=== PATIENT | female | born 1950 | race Caucasian/White ===

== ENCOUNTER → 2024-10-25 | Outpatient (CLI) | payer MEDICARE, MEDICAID, SELFPAY ==
--- NOTE | 2024-10-25 09:17 | XR_ITS ---
Examination: Foot bilateral, 6 views Technique: AP, oblique, lateral views each foot total 6 views Date and time of exam: October 25, 2024 1012 hours INDICATIONS: Bilateral foot pain and numbness several years FINDINGS: Severe osteopenia Bilateral significant osteoarthritis tibiotalar and intertarsal joints Bilateral 5 mm plantar bony calcaneal spurs No fractures No cortical bone destruction IMPRESSION: Significant osteoarthritis as above
--- NOTE | 2024-10-25 09:18 | XR_ITS ---
Examination: Bilateral hips, AP pelvis, 5 views Technique: AP, lateral views both hips, AP pelvis, 5 views Exam date and time: October 25, 2024 1012 hours INDICATIONS: Bilateral hip pain years FINDINGS: Moderate left hip osteoarthritis Sclerosis and radiolucencies left femoral head consistent with advanced avascular necrosis Right hip bipolar hemiarthroplasty with satisfactory alignment Bones the pelvis intact IMPRESSION: Consider MRI hip without contrast follow-up to confirm advanced left hip avascular necrosis
== END | disposition home or self-care (01) ==
LOC: CDIM 09:03
PROVIDERS: PCP Family Medicine; Referring Provider Nurse Practitioner Family; Visit Provider Nurse Practitioner Family
DX: M87.9 Osteonecrosis, unspecified (principal); M19.072 Primary osteoarthritis, left ankle and foot; M19.071 Primary osteoarthritis, right ankle and foot
CPT/HCPCS: 73523; 73630

== ENCOUNTER 2025-01-23 11:54 | Inpatient (IN) | payer MEDICARE, MEDICAID, SELFPAY ==
[2025-01-23] VITALS (9 sets, daily range): BP systolic 156–213; BP diastolic 72–92; PULSE 72–102; RESP 14–20; TEMP 36.6–36.9; O2SAT 90–99; BMI 32.0; BMI 29.6
--- NOTE | 2025-01-23 11:57 | EKG_ITS ---
[facility] Test Date: 2025-01-23 Pat Name: SILVER NOWAK Department: Room: - Gender: Female X Ray Nurse: : 1950 Requested By: ED Temporary Provider Order Number: [id number] Reading MD: ED Temporary Provider Measurements Intervals Rodeo Rate: 71 P: 62 NM: 158 QRS: 10 QRSD: 120 T: 82 QT: 371 QTc: 406 Interpretive Statements SINUS RHYTHM WITH MARKED SINUS ARRHYTHMIA INFERIOR MYOCARDIAL INFARCTION , OF INDETERMINATE AGE [40+ ms Q WAVE AND/OR ST/T ABNORMALITY IN II/aVF] ANTEROLATERAL MYOCARDIAL INFARCTION , OF INDETERMINATE AGE [40+ ms Q WAVE IN I/aVL/V3-V6] Compared to ECG 12/16/2018 20:49:37 Sinus bradycardia no longer present Myocardial infarct finding still present /store/S0/[id number].pdf
--- NOTE | 2025-01-23 12:06 | XR_ITS ---
Examination: AP lateral chest 2 views TECHNIQUE: Sitting AP lateral chest 2 views Date and time: January 23, 2025 1230 hours INDICATIONS: Chest pain beginning one week ago. FINDINGS: Normal heart size. No pneumonia or pulmonary edema Moderate thoracic spondylosis IMPRESSION: No active disease
--- NOTE | 2025-01-23 12:06 | EDRME_ITS ---
Rapid Medical Screening Exam [facility] Arrival date/time: 01/23/25 11:54 74-year-old female with a history of hyperlipidemia, hypertension, COPD presents to the emergency room with a chief complaint of chest pain that has been going on for the last week but has progressively gotten worse the last 2 days. Patient states it is currently a 5 out of 10 sternal chest pain that radiates to her back. I have greeted and performed a focused initial assessment of this patient. A comprehensive ED assessment and evaluation of the patient, analysis of all test results, and completion of the medical decision making process will be conducted by additional ED providers. Chief Complaint: Chest Pain Vital signs: Vital Signs Temperature 98.5 F 01/23/25 12:04 Pulse Rate 75 01/23/25 12:04 Respiratory Rate 19 01/23/25 12:04 Blood Pressure 184/72 H 01/23/25 12:04 Pulse Oximetry (%) 98 01/23/25 12:04 Oxygen Delivery Method Room Air 01/23/25 12:04 Vital signs reviewed by provider: Yes
[2025-01-23] MEDS: HYDROcodone/APAP 5/325 TABLET 1 TAB PO (12:31)
[2025-01-23 12:44] LABS: Basophils # (Auto) 0.1 Thou/mm3 (0.0-0.2); Basophils % (Auto) 1 % (0-2.5); Eosinophils # (Auto) 0.4 Thou/mm3 (0.0-0.5); Eosinophils % (Auto) 3 % (0-10); Hematocrit 38.4 % (36.0-46.0); Hemoglobin 13.3 g/dL (12.0-16.0); Immature Granulocytes Auto 0.06 Thou/mm3 (0.00-0.00); Lymphocytes # (Auto) 2.7 Thou/mm3 (1.0-4.8); Lymphocytes % (Auto) 17 % (10-50); Mean Corpuscular HGB Conc 34.6 g/dl (31.0-37.0); Mean Corpuscular Hemoglobin 31.4 pg (25.0-35.0); Mean Corpuscular Volume 91 fL (80-100); Monocytes # (Auto) 0.9 Thou/mm3 (0.0-0.8); Monocytes % (Auto) 5 % (0-12); Neutrophils # (Auto) 12.0 Thou/mm3 (1.8-7.7); Neutrophils % (Auto) 74 % (37-80); Nucleated Red Blood Cell # 0.00 Thou/mm3 (0.00-0.00); Nucleated Red Blood Cell % 0 /100 WBC (0); Platelet Count 318 Thou/mm3 (140-440); RDW Standard Deviation 47.0 fL (36.4-46.3); Red Blood Count 4.24 Miln/mm3 (4.00-5.20); White Blood Count 16.2 Thou/mm3 (3.6-11.0)
[2025-01-23 12:48] LABS: INR 1.0 (0.9-1.3); Partial Thromboplastin Time 28.3 Seconds (22.0-36.0); Prothrombin Time 10.9 Seconds (9.0-12.2)
[2025-01-23 12:52] LABS: B-Type Natriuretic Peptide 151 pg/mL (0-100)
[2025-01-23 13:07] LABS: Alanine Aminotransferase < 7 U/L (10-49); Albumin, Serum 4.5 gm/dL (3.4-4.8); Albumin/Globulin Ratio 1.7 (1.2-2.2); Alkaline Phosphatase 101 U/L (46-116); Anion Gap 10 (7-16); Aspartate Amino Transferase 16 U/L (0-34); BUN/Creatinine Ratio 12 Ratio (12-20); Bilirubin,Total 0.7 mg/dL (0.3-1.2); Blood Urea Nitrogen 12 mg/dL (9-23); Calcium 9.6 mg/dL (8.3-10.6); Calcium (Corrected) 9.6 mg/dL (8.5-10.1); Carbon Dioxide 23.3 mMol/L (20.0-31.0); Chloride 105 mMol/L (98-107); Creatinine (Component) 1.0 mg/dL (0.6-1.3); Globulin 2.7 gm/dL (2.3-3.5); Glucose 174 mg/dL (74-106); Magnesium 1.7 mg/dL (1.6-2.6); Osmolality,Calculated 279 (275-295); Potassium 3.8 mMol/L (3.4-5.1); Sodium 138 mMol/L (136-145); Total Protein 7.2 gm/dL (5.7-8.2); eGFR 59 See Note
--- NOTE | 2025-01-23 13:07 | PD.EDCHEST ---
ED Chest Pain RME/HPI General Chief Complaint: Chest Pain Stated Complaint: CHEST PAIN X 1 WK Time Seen by Provider: 01/23/25 12:20 Arrival date/time: 01/23/25 11:54 Limitations: no limitations RME / HPI RME / HPI narrative: 01/23/25 11:54 74-year-old female with a history of hyperlipidemia, hypertension, COPD presents to the emergency room with a chief complaint of chest pain that has been going on for the last week but has progressively gotten worse the last 2 days. Patient states it is currently a 5 out of 10 sternal chest pain that radiates to her back. I have greeted and performed a focused initial assessment of this patient. A comprehensive ED assessment and evaluation of the patient, analysis of all test results, and completion of the medical decision making process will be conducted by additional ED providers. DR. MEJIA MAIN ED EVALUATION 74 year old female with history of CAD, DE s/p PCI, hypertension, hyperlipidemia, GERD, presents to the ED for evaluation of substernal chest pain. Described as burning tightness sensation that radiates to her back, rating as moderate. Accompanied by nausea, vomiting, sweats, and burping. No known modifying factors reported. Sap Hana Developer: Dr. Ness Related Data Home Medications ?Medication ?Instructions ?Recorded ?Confirmed ezetimibe 10 mg tablet (Zetia) 10 mg PO QDAY #0 tabs 11/20/13 12/16/18 aspirin 81 mg chewable tablet 81 mg PO QDAY ##0 11/14/15 12/16/18 clopidogrel 75 mg tablet (Plavix) 75 mg PO QDAY #0 tabs 02/02/17 12/16/18 celecoxib 200 mg capsule 200 mg PO QDAY 11/23/18 12/16/18 hydrocodone 7.5 mg-acetaminophen 1 tab PO Q6H PRN Pain 11/23/18 12/16/18 325 mg tablet (Dryden) Previous Rx's ?Medication ?Instructions ?Recorded nitroglycerin 0.4 mg sublingual 0.4 mg SL Q5MIN PRN CHEST PAIN #5 06/27/17 tablet (Nitrostat) tabs atorvastatin 20 mg tablet 40 mg (2 x 20 mg) PO HS #30 tabs 11/26/18 gabapentin 100 mg capsule 200 mg (2 x 100 mg) PO TID #90 caps 11/26/18 lisinopril 20 mg tablet 40 mg (2 x 20 mg) PO QDAY #30 tabs 11/26/18 metoprolol tartrate 25 mg tablet 25 mg PO BID #60 tabs 11/26/18 pantoprazole 40 mg tablet,delayed 40 mg PO QDAY #30 tabs 11/26/18 release Allergies Allergy/AdvReac Type Severity Reaction Status Date / Time No Known Allergies Allergy Verified 01/23/25 11:56 Review of Systems Review of Systems Systems Reviewed: All systems reviewed, normal except as documented Past Medical History Past Medical History NEUROLOGIC: Positive Peripheral Neuropathy CARDIAC: Positive Cardiac Disorders, Myocardial Infarction (x3), Atrial Fibrillation and Hypertension RESPIRATORY: Positive Chronic Obstructive Pulmonary Disease (COPD) ENT: Positive Deafness Surgical History SURGICAL: Positive Coronary Stent (x4), Ear Surgery (left), Eye Surgery (roderick cataract with lenses), Tonsillectomy, Joint Replacement (roderick. knee and right hip) and Section Social History SMOKING STATUS: Former smoker SUBSTANCE USE: marijuana ( occasionally) ED Exam General Limitations: Present no limitations General appearance: Present alert and in no apparent distress Head Head exam: Present atraumatic, normocephalic and normal inspection Eye Eye exam: Present normal appearance, PERRL and EOMI ENT ENT exam: Present normal exam, normal oropharynx and mucous membranes moist Neck Neck exam: Present normal inspection, full ROM and trachea midline Chest Chest inspection: Present normal inspection and symmetric chest wall rise Respiratory Respiratory exam: Present normal lung sounds bilaterally Cardiovascular Cardiovascular exam: Present regular rate, normal rhythm and normal heart sounds Abdominal Exam Abdominal exam: Present soft and normal bowel sounds Extremities Exam Extremities exam: Present normal inspection and full ROM Back Exam Back exam: Present normal inspection and full ROM Neurological Exam Neurological exam: Present alert, oriented X3 and CN II-XII intact Psychiatric Psychiatric exam: Present normal affect and normal mood Skin Skin exam: Present warm, dry, intact and normal color Course Quality Measures none Orders Category Date Time Status CT Screening NOW Care 01/23/25 15:21 Active EKG (ED ONLY) *Do not use* NOW Care 01/23/25 11:57 Completed Miscellaneous Nursing Order NOW Care 01/23/25 15:[address] angio chest Stat Exams 01/23/25 15:20 Ordered EKG (ED Only) Stat Exams 01/23/25 11:57 Draft XR chest 2V Stat Exams 01/23/25 12:06 Completed B-Type Natriuretic Peptide Stat Lab 01/23/25 12:19 Completed CBC Stat Lab 01/23/25 12:19 Completed Comprehensive Metabolic Panel Stat Lab 01/23/25 12:19 Completed Magnesium Stat Lab 01/23/25 12:19 Completed Partial Thromboplastin Time Stat Lab 01/23/25 12:19 Completed Prothrombin Time with INR Stat Lab 01/23/25 12:19 Completed Troponin I Stat Lab 01/23/25 12:19 Completed Troponin I Stat Lab 01/23/25 14:45 Completed Urinalysis Stat Lab 01/23/25 16:00 Completed Famotidine Inj [Pepcid Inj] Med 01/23/25 13:09 Discontinued 20 mg IVP X1 ONE HYDROcodone*/APAP 5/325 [Dryden 5/325] Med 01/23/25 12:23 Discontinued 1 tab PO X1 ONE Morphine Inj Med 01/23/25 13:10 Discontinued 2 mg IVP Q30M PRN Morphine Inj Med 01/23/25 15:14 Discontinued 4 mg IVP X1 ONE Nitroglycerin Oint 2% [Nitro-paste Oint 2%] Med 01/23/25 13:15 Discontinued 1 inch TOP X1 ONE Nitroglycerin/D5w 50 MG IVPB [Nitroglycerin in D5w Ivpb Med 01/23/25 15:59 Active ] 50 mg in 250 ml IV 5 mcg/min Ondansetron Inj [Zofran Inj] Med 01/23/25 13:10 Discontinued 4 mg IVP X1 ONE mg Hyd/Al Hyd/Vanna Susp [Maalox Susp] Med 01/23/25 13:09 Discontinued 30 ml PO X1 ONE Vital Signs Vital signs: Vital Signs Temperature 98.5 F 01/23/25 12:04 Pulse Rate 75 01/23/25 12:04 Respiratory Rate 19 01/23/25 12:04 Blood Pressure 184/72 H 01/23/25 12:04 Pulse Oximetry (%) 98 01/23/25 12:04 Oxygen Delivery Method Room Air 01/23/25 12:04 Pulse ox is 98% on room air which is adequate. Chest Pain MDM Narrative MDM Narrative:: IMayra am scribing for and in the presence of Dr. Mejia. 1800: Patient signed out to Dr. Calvillo pending CT angio chest and final disposition. Patient data External records reviewed:: [facility] previous records (I reviewed admission from 12/16/2024 through 12/17/2024) Clinical information provided by:: patient Social determinants that could affect healthcare access:: none Patient has the following chronic illnesses:: CAD, DE s/p PCI, hypertension, hyperlipidemia, GERD How is presenting disease/condition affected by chronic disease/condition?: exacerbated by Evaluation data The following diagnostics were reviewed and interpreted by me:: lab results, radiology exam(s) and EKG tracing(s) (EKG 12:00 PM. NSR, HR 71, sinus arrhythmia, normal axis, Q-waves in lead II III and aVF, ST depression in I and aVF, no STEMI ) Lab and/or radiology exams considered but not ordered:: None Interpretation Summary: Ordering Physician: Shadi Vega Date of Service: 01/23/25 Procedure(s): XR chest 2V Accession Number(s): [id number] cc: Shadi Vega; Emanuel Ortiz MD~ Examination: AP lateral chest 2 views TECHNIQUE: Sitting AP lateral chest 2 views Date and time: January 23, 2025 1230 hours INDICATIONS: Chest pain beginning one week ago. FINDINGS: Normal heart size. No pneumonia or pulmonary edema Moderate thoracic spondylosis IMPRESSION: No active disease Dictated By: Emanuel Ortiz MD Signed By: <Electronically signed by Emanuel Ortiz MD in OV> 01/23/25 1242 Medications / Prescriptions Medications or Prescriptions considered but not ordered:: None Medication administrations:: Medication Administration History Nitroglycerin/Dextrose (Nitroglycerin In D5w Ivpb) 50 mg in 250 mls @ 1.5 mls/hr IV .Q24H PRN; Protocol PRN Reason: PER PROTOCOL Stop: 02/22/25 15:58 Last Titration: 01/23/25 17:34 Dose: 10 mcg/min, 3 mls/hr Documented By: Admin: 01/23/25 17:12 Dose: 5 mcg/min, 1.5 mls/hr Documented By: VRS Discontinued Medications Hydrocodone Bitart/Acetaminophen (Hydrocodone/Apap 5/325 Tablet) 1 tab PO X1 ONE Stop: 01/23/25 12:24 Last Admin: 01/23/25 12:31 Dose: 1 tab Documented By: OA Al Hydrox/Mg Hydrox/Simethicone (Mg Hyd/Al Hyd/Vanna (Maalox Reg) Susp 30 Ml Udc) 30 ml PO X1 ONE Stop: 01/23/25 13:10 Last Admin: 01/23/25 15:21 Dose: 30 ml Documented By: DO Famotidine (Famotidine Inj 10 Mg/Ml Vial 2 Ml) 20 mg IVP X1 ONE Stop: 01/23/25 13:10 Last Admin: 01/23/25 13:20 Dose: 20 mg Documented By: NAKUL Morphine Sulfate (Morphine Sulf Inj 10 Mg/Ml Vial) 2 mg IVP Q30M PRN PRN Reason: CHEST PAIN Stop: 01/24/25 13:09 Last Admin: 01/23/25 17:10 Dose: 2 mg Documented By: Admin: 01/23/25 14:03 Dose: 2 mg Documented By: Admin: 01/23/25 13:20 Dose: 2 mg Documented By: NAKUL Morphine Sulfate (Morphine Sulf Inj 10 Mg/Ml Vial) 4 mg IVP X1 ONE Stop: 01/23/25 15:15 Last Admin: 01/23/25 15:21 Dose: 4 mg Documented By: DO Nitroglycerin (Nitroglycerin Oint 2% 1 Inch Packet) 1 inch TOP X1 ONE Stop: 01/23/25 13:16 Last Admin: 01/23/25 13:27 Dose: 1 inch Documented By: NAKUL Ondansetron HCl (Ondansetron Inj 2 Mg/Ml Inj 2 Ml) 4 mg IVP X1 ONE; Protocol Stop: 01/23/25 13:11 Last Admin: 01/23/25 13:21 Dose: 4 mg Documented By: NAKUL see above Consultations Consultation(s) initiated? (list below): No Diagnosis Chest Pain Differential Diagnosis: stable angina, unstable angina pectoris, atypical chest pain, st elevation myocardial infarction, costochondritis, chest pain and biliary colic Most likely diagnosis given after review of the tests above:: Chest pain Admission Indicated Admission indicated?: not indicated Explain why admission is indicated or not indicated:: Patient signed out pending final disposition. Admission Request Was there a request for admission?: No Disposition Plan Disposition Plan: other (specify) (Signed out to Dr. Calvillo) Discharge Plan Prescriptions/Referrals Prescriptions/Med Rec: No Action ezetimibe [Zetia] 10 MG tablet 10 mg PO QDAY Qty: 0 aspirin 81 MG tablet,chewable 81 mg PO QDAY Qty: 0 clopidogrel [Plavix] 75 MG tablet 75 mg PO QDAY Qty: 0 nitroglycerin [Nitrostat] 0.4 MG tablet, sublingual 0.4 mg SL Q5MIN PRN (Reason: CHEST PAIN) Qty: 5 0RF celecoxib 200 mg Capsule 200 mg PO QDAY hydrocodone-acetaminophen [Dryden] 7.5-325 mg Tablet 1 tab PO Q6H PRN (Reason: Pain) atorvastatin 20 mg Tablet 40 mg PO HS Qty: 30 0RF lisinopril 20 mg Tablet 40 mg PO QDAY Qty: 30 0RF pantoprazole 40 mg Tablet,Delayed Release (Dr/Ec) 40 mg PO QDAY Qty: 30 0RF gabapentin 100 mg Capsule 200 mg PO TID Qty: 90 0RF metoprolol tartrate 25 mg Tablet 25 mg PO BID Qty: 60 0RF Referrals: Griffin Up FNP [Primary Care Provider] - In 1 week Patient/Caregiver Discharge Instructions Print Language: Somali
--- NOTE | 2025-01-23 13:07 | PC.NURSE ---
PT IN TODAY FOR CHEST PAIN FOR THE LAST WEEK. PT STATES THAT SHE HAS A BURNING SENSATION, SOB, N/V, AND DIAPHORESIS. PT STATES THAT PAIN RADIATES TO LEFT HAND. DR. MEJIA AT BEDSIDE.
[2025-01-23 13:13] LABS: Troponin I 0.059 ng/mL (0.0-0.045)
[2025-01-23] MEDS: MORPHINE SULF INJ 10 MG/ML VIAL 2 MG IVP ×3 (13:20→17:10)
[2025-01-23] MEDS: FAMOTIDINE INJ 10 MG/ML VIAL 2 ML 20 MG IVP (13:20)
[2025-01-23] MEDS: ONDANSETRON INJ 2 MG/ML INJ 2 ML 4 MG IVP ×2 (13:21→22:13)
[2025-01-23] MEDS: NITROGLYCERIN OINT 2% 1 INCH PACKET TOP (13:27)
--- NOTE | 2025-01-23 15:20 | XR_ITS ---
Examination: CTA chest with intravenous contrast 2-D reconstructions 3-D reconstructions, vascular Date and time of exam: January 23, 2025, 1855 hours INDICATIONS: Severe chest pain one week CTDI: vol (mGy) 10.7 DLP: (mGycm) 273 Technique: Multiple axial sections of the thorax have been obtained. 3 mm slice thickness, from below the hemidiaphragms to above the apices of the lungs. Mediastinal and lung density settings have been obtained. 2-D sagittal and coronal reconstructions. 3-D angiographic renderings, 3-D volume renderings, 3D post processing, vascular maximum intensity projections obtained. Contrast administered is 100 cc Isovue-370. Low dose protocols were performed. One or more of the following dose reduction techniques were used; automated exposure control, adjustment of the mA and/or KV according to patient size, use of iterative reconstruction technique. Findings: No thoracic aortic aneurysmal dilatation or dissection Main pulmonary artery segment 34 mm No pulmonary artery emboli Heavy calcification left anterior descending coronary artery Mild enlargement left atrium and left ventricle No pneumonia or pulmonary edema 8 mm liver cyst Absent gallbladder No common bile duct stones Trace fluid subcapsular to the spleen, 6 mm, axial image 147 Atrophic pancreas No hydronephrosis Prominent thoracic spondylosis IMPRESSION: No thoracic aortic aneurysm dilatation or dissection Pulmonary artery hypertension pattern. Negative for pulmonary artery emboli Heavy calcification left anterior descending coronary artery
[2025-01-23] MEDS: MORPHINE SULF INJ 10 MG/ML VIAL 4 MG IVP (15:21)
[2025-01-23] MEDS: MG HYD/AL HYD/SIME (Maalox Reg) SUSP 30 ML UDC PO (15:21)
[2025-01-23 15:43] LABS: Troponin I 0.180 ng/mL (0.0-0.045)
[2025-01-23 16:38] LABS: Collection Type, Urine Clean Catch
[2025-01-23] MEDS: Nitroglycerin/D5w 50 MG IVPB 50 MG/250 ML BTL IV (17:12)
[2025-01-23 17:46] LABS: Bacteria,Urine Rare; Bilirubin,Urine Negative (Negative); Blood,Urine 2+ (Negative); Budding Yeast,Urine Present; Clarity,Urine Turbid (Clear/Hazy); Color,Urine Lt-Yellow (Lt Yel-Yel); Glucose, Urine Negative (Negative); Ketones,Urine Negative (Negative); Leukocyte Esterase,Urine Negative (Negative); Nitrite,Urine Negative (Negative); PH,Urine 6.0 (5.0-7.0); Protein,Urine 1+ (Neg - Trace); RBC,Urine 5 /hpf (0-3); Specific Gravity,Urine 1.016 (1.001-1.035); Squamous Epithelial Cell,Urine 16 /hpf (0-5); Urobilinogen,Urine Negative mg/dL (0.0-1.0); WBC,Urine 1 /hpf (0-5)
--- NOTE | 2025-01-23 18:52 | EDNOTE_ITS ---
Emergency Room Addendum Addendum Narrative: 1800: Care assumed from Dr. Stevenson, the previous shift emergency physician. Past medical, surgical, social and family history reviewed. Vitals and home medications reviewed. Results and treatment plan discussed. I will assume the care of the patient at this time and will follow the patient, pending CT angio chest. Please refer to the emergency department record for history and examination from initial visit. Repeat troponin went up to 0.180 (was 0.059). CTA read unremarkable for any acute findings. Will consult cardiology. 1945: Discussed case with Dr. Lama from cardiology regarding consultation. Discussed patients ED course, exam findings, labs, and radiology results. Agrees to consult. 1948: Discussed case with the resident physician, attending Dr. Doyle from Hospitalist service regarding admission. Discussed patients ED course, exam findings, labs, and radiology results. The Hospitalist agrees to accept the patient for admission. RADIOLOGY RESULTS: [facility] Report Signed Patient: SILVER NOWAK. Record#: [id number] Birthdate: 1950 Age/Sex: 74 / F Location: [facility] Attending Dr: Ordering Physician: Alex Stevenson MD Date of Service: 01/23/25 Procedure(s): CT angio chest Accession Number(s): [id number] cc: Griffin Up; Emanuel Ortiz MD; Alex Stevenson MD~ Examination: CTA chest with intravenous contrast 2-D reconstructions 3-D reconstructions, vascular Date and time of exam: January 23, 2025, 1855 hours INDICATIONS: Severe chest pain one week CTDI: vol (mGy) 10.7 DLP: (mGycm) 273 Technique: Multiple axial sections of the thorax have been obtained. 3 mm slice thickness, from below the hemidiaphragms to above the apices of the lungs. Mediastinal and lung density settings have been obtained. 2-D sagittal and coronal reconstructions. 3-D angiographic renderings, 3-D volume renderings, 3D post processing, vascular maximum intensity projections obtained. Contrast administered is 100 cc Isovue-370. Low dose protocols were performed. One or more of the following dose reduction techniques were used; automated exposure control, adjustment of the mA and/or KV according to patient size, use of iterative reconstruction technique. Findings: No thoracic aortic aneurysmal dilatation or dissection Main pulmonary artery segment 34 mm No pulmonary artery emboli Heavy calcification left anterior descending coronary artery Mild enlargement left atrium and left ventricle No pneumonia or pulmonary edema 8 mm liver cyst Absent gallbladder No common bile duct stones Trace fluid subcapsular to the spleen, 6 mm, axial image 147 Atrophic pancreas No hydronephrosis Prominent thoracic spondylosis IMPRESSION: No thoracic aortic aneurysm dilatation or dissection Pulmonary artery hypertension pattern. Negative for pulmonary artery emboli Heavy calcification left anterior descending coronary artery Dictated By: Emanuel Ortiz MD Signed By: <Electronically signed by Emanuel Ortiz MD in OV> 01/23/25 0861
--- NOTE | 2025-01-23 20:34 | PD.RESHP ---
Documentation for date of: 01/23/25 HPI History of Present Illness Chief complaint: Chest pain History of present illness: 74-year-old female with past medical history of coronary artery disease status post stent placement x 4 (last one in 2018 and first 1 in 1993), hypertension, hyperlipidemia, neuropathy, marijuana use disorder presenting to the ED on 01/23 with acute chest pain. Patient states that the pain is substernal region and feels like a stabbing sensation that radiates to her back with no radiation to her jaw or upper extremities. Pain does not subside with deep inspiration and she feels slightly better when she is sitting upright. Of note, patient follows up with pin drafting machine tender Dr. Ness and her last appointment was about 3 months ago; moreover, she was scheduled for another appointment for reassessment and imaging. Patient denies having any history of heart failure and denies having any orthopnea, paroxysmal nocturnal dyspnea, lower extremity edema or cough. Medical history: As stated above Surgical history: Angioplasty with 4 stents placed ([id number]) Allergies: NKDA Medications: Patient on Plavix for CAD, losartan 100 and amlodipine 5 for hypertension and statin medication, pending med rec Family history: Patient has significant family history of coronary artery disease with CABG and DE in father and secondary family members with hypertension Social history: Patient currently lives with nephew, smokes marijuana daily but denies any alcohol or tobacco use. Patient normally ambulates using a walker secondary to neuropathy ROS: All 12 systems assessed and the patient denies unless otherwise stated in HPI In the ED, patient presented in hypertensive emergency with a blood pressure of 213/92, heart rate of 75 with some bouts of tachycardia is high as 102, respiratory rate within normal limits, afebrile satting 98 but currently 90 on room air. Pertinent lab findings included WBC of 16.2, hemoglobin 13.3, potassium 3.8, creatinine 1.0, BUN 12, EGFR 59, magnesium 1.7, troponin initially 0.059 has uptrend to 0.180 and is currently 2.037. BNP of 151, urinalysis shows no signs of infection. EKG shows sinus rhythm with possible ST changes noted in V1?V3 and reciprocal changes in leads I. Chest x-ray shows no active disease in chest CTA shows heavy calcification of the LAD, mild enlargement of the left atrium and left ventricle, 8 mm liver cyst and PAH pattern noted Patient will be admitted for NSTEMI type I on heparin drip with cardiology consulted for possible left heart cath. Exam Vital Signs Temp Pulse Resp BP Pulse Ox O2 Del Method 98.2 F 102 H 16 160/79 H 96 Room Air 01/23/25 16:50 01/23/25 17:33 01/23/25 17:33 01/23/25 17:33 01/23/25 17:33 01/23/25 17:33 Narrative Exam Physical Exam: GENERAL: Awake, answering questions appropriately, appears stated age HEENT: NC/AT. Moist mucosa. PERRLA/EOMI. CARDIO: Heart RRR, no obvious murmurs, no JVD. PULM: No coughing or visible SOB. Lungs CTA B/L. GI: Abdomen soft, NT/ND, +BS. SKIN/MSK/EXT: Tenderness elicited on left hip. No wounds/discoloration/rashes/edema/amputations. +Pedal pulses present B/L. NEURO: Oriented x3, Moves extremities x4, decreased sensation to pinprick and vibration on right foot but motor strength 5 out of 5 on bilateral lower extremities, no focal neurologic deficits noted Results: Labs 01/23/25 12:19 01/23/25 12:19 Labs: Short CBC 01/23/25 Range/Units 12:19 WBC 16.2 H (3.6-11.0) Thou/mm3 Hgb 13.3 (12.0-16.0) g/dL Hct 38.4 (36.0-46.0) % Plt Count 318 (140-440) Thou/mm3 BMP 01/23/25 12:19 Sodium 138 Potassium 3.8 Chloride 105 Carbon Dioxide 23.3 BUN 12 Creatinine 1.0 Glucose 174 H Calcium 9.6 Cardiac Enzymes 01/23/25 01/23/25 Range/Units 12:19 14:45 Troponin I 0.059 H* 0.180 H* (0.0-0.045) ng/mL Liver Function 01/23/25 Range/Units 12:19 Total Bilirubin 0.7 (0.3-1.2) mg/dL AST 16 (0-34) U/L ALT < 7 L (10-49) U/L Alkaline Phosphatase 101 (46-116) U/L Albumin 4.5 (3.4-4.8) gm/dL Urine 01/23/25 Range/Units 16:00 Urine Color Lt-Yellow (Lt Yel-Yel) Urine Clarity Turbid A (Clear/Hazy) Urine pH 6.0 (5.0-7.0) Ur Specific [place] 1.016 (1.001-1.035) Urine Protein 1+ A (Neg - Trace) Urine Glucose (UA) Negative (Negative) Quality Measures Quality Measures none Advance care planning discussed with:: patient Medications Home Medications and Allergies Home Medications ?Medication ?Instructions ?Recorded ?Confirmed ?Type ezetimibe 10 mg tablet (Zetia) 10 mg PO QDAY #0 tabs 11/20/13 12/16/18 History aspirin 81 mg chewable tablet 81 mg PO QDAY ##0 11/14/15 12/16/18 History clopidogrel 75 mg tablet (Plavix) 75 mg PO QDAY #0 tabs 02/02/17 12/16/18 History celecoxib 200 mg capsule 200 mg PO QDAY 11/23/18 12/16/18 History hydrocodone 7.5 mg-acetaminophen 1 tab PO Q6H PRN Pain 11/23/18 12/16/18 History 325 mg tablet (Hartman) Allergies Allergy/AdvReac Type Severity Reaction Status Date / Time No Known Allergies Allergy Verified 01/23/25 11:56 Visit Medications Acetaminophen (Acetaminophen 325 Mg Tablet) 650 mg PO Q6H PRN PRN Reason: PAIN SCALE 1-3 (mild Stop: 02/22/25 20:01 Nitroglycerin/Dextrose (Nitroglycerin In D5w Ivpb) 50 mg in 250 mls @ 1.5 mls/hr IV .Q24H PRN; Protocol PRN Reason: PER PROTOCOL Stop: 02/22/25 15:58 Last Titration: 01/23/25 20:10 Dose: 25 mcg/min, 7.5 mls/hr Ondansetron HCl (Ondansetron Inj 2 Mg/Ml Inj 2 Ml) 4 mg IVP Q6H PRN; Protocol PRN Reason: NAUSEA OR VOMITING Stop: 02/22/25 20:01 Discontinued Medications Hydrocodone Bitart/Acetaminophen (Hydrocodone/Apap 5/325 Tablet) 1 tab PO X1 ONE Stop: 01/23/25 12:24 Last Admin: 01/23/25 12:31 Dose: 1 tab Al Hydrox/Mg Hydrox/Simethicone (Mg Hyd/Al Hyd/Vanna (Maalox Reg) Susp 30 Ml Udc) 30 ml PO X1 ONE Stop: 01/23/25 13:10 Last Admin: 01/23/25 15:21 Dose: 30 ml Famotidine (Famotidine Inj 10 Mg/Ml Vial 2 Ml) 20 mg IVP X1 ONE Stop: 01/23/25 13:10 Last Admin: 01/23/25 13:20 Dose: 20 mg Morphine Sulfate (Morphine Sulf Inj 10 Mg/Ml Vial) 2 mg IVP Q30M PRN PRN Reason: CHEST PAIN Stop: 01/24/25 13:09 Last Admin: 01/23/25 17:10 Dose: 2 mg Morphine Sulfate (Morphine Sulf Inj 10 Mg/Ml Vial) 4 mg IVP X1 ONE Stop: 01/23/25 15:15 Last Admin: 01/23/25 15:21 Dose: 4 mg Nitroglycerin (Nitroglycerin Oint 2% 1 Inch Packet) 1 inch TOP X1 ONE Stop: 01/23/25 13:16 Last Admin: 01/23/25 13:27 Dose: 1 inch Ondansetron HCl (Ondansetron Inj 2 Mg/Ml Inj 2 Ml) 4 mg IVP X1 ONE; Protocol Stop: 01/23/25 13:11 Last Admin: 01/23/25 13:21 Dose: 4 mg Assessment & Plan Plan 74-year-old female with past medical history of coronary artery disease status post stent placement x 4 (last one in 2019 and first 1 in 1993), hypertension, hyperlipidemia, neuropathy, marijuana use disorder presenting to the with acute chest pain will be admitted for NSTEMI type I on heparin drip with cardiology consulted for possible left heart cath. #NSTEMI type I #Acute coronary syndrome #History of coronary artery disease, status post 4 stents placed ASCVD risk score 37.4% Risk of cardiovascular event (coronary or stroke or non-fatal DE or stroke) in next 10 years. As noted above in HPI, patient is presenting with typical chest pain located in the substernal region started earlier in the day with radiation to the back Patient has significant history of coronary artery disease, follows Dr. Ness last stent placed in 2019 Operative note from 2019 shows 100% occlusion of the long segment of the proximal to mid right coronary artery, previously stented long segment of the mid left anterior descending Patient has not follow-up with Dr. Ness for about 3 months Troponin initially 0.059 has uptrend to 0.180 and is currently 2.037. BNP of 151 EKG shows sinus rhythm with possible ST changes noted in V1?V3 and reciprocal changes in leads I CTA shows heavy calcification of the LAD, mild enlargement of the left atrium and left ventricle, 8 mm liver cyst and PAH pattern noted In the ED, patient was given IV pain medication along with nitroglycerin topical followed by nitroglycerin drip which was later discontinued Cardiology was made aware of the patient and agreed on admitting Plan: Will discontinue nitroglycerin drip Will start heparin drip Started patient on home Plavix dose 40 mg atorvastatin Carvedilol 6.25 p.o. twice daily Will hold off on MARIO ARB as the patient had hypertensive emergency, permissive hypertension Cardiology consulted, appreciate recommendations Will continue to trend troponin Echo ordered Will keep magnesium greater than 2 and potassium greater than 4 Telemetry monitoring #Hypertensive emergency #PAH #Hypertension Patient is on home losartan 100 and amlodipine 5 Hypertensive emergency with a blood pressure of 213/92, heart rate of 75 with some bouts of tachycardia is high as 102 Currently blood pressure is 156/80 Plan: Permissive hypertension with a goal reduction of no more than 25% over the next 24 hours As needed IV labetalol 10 mg every 6 hours if blood pressure is above 185/105 Restart home medications when appropriate #Leukocytosis Differentials include likely reactive process secondary to acutely ill status versus underlying infection Patient denies having any concerning symptoms such as cough/shortness of breath, dysuria Chest x-ray shows no active disease in chest U/a was negative for any signs of infection Plan: Treat primary problem Continue to monitor with morning labs #MS? #Neuropathy Patient states that she has been diagnosed with MS in the past but she is currently not taking any medications On examination, patient has reduced sensation in the right lower extremity, foot Denies having any history of diabetes Plan: Follow-up with outpatient PCP #8mm Liver cyst Incidental finding on CT imaging Plan: Consider further imaging studies Follow-up outpatient #Marijuana use disorder Patient apparently smokes marijuana daily Plan: Consider social service consultation [place] on cessation #Left hip musculoskeletal disorder Apparently in 2019, patient had a fall on her left hip and she has been having pain in the region Patient's PCP Dr. Erazo has done imaging studies which were negative for any fracture Plan: Pain management when appropriate Health Maintenance: Lines: PIV Diet: N.p.o. after midnight Bowel: Not needed at this point GI prophylaxis: Not needed at this point DVT prophylaxis: On heparin drip Dispo: On heparin drip for NSTEMI type I with cardiology consultation for possible left heart cath Code: Full Patient seen and examined with attending Dr. Rodney Houser, DO PGY-2 Internal Medicine - [facility] Attending Provider Attestation/Addendum 74-year-old female with coronary artery disease with previous coronary stents x 4 presents with chest pain. She said that her pain started over a week ago. She was supposed to see Dr. Jefferson her pin drafting machine tender. The patient however cannot stand the pain anymore. She came to the emergency room. Heparin drip was started. The patient has initial troponin of 0.059. Repeat troponin is 0.180. Patient still complains of chest pain. Cardiology consultation was requested. As mentioned she was started on heparin drip. Vital signs are stable. She is not hypoxic. She is not congested. EKG showed lateral wall ischemic changes. Normal sinus rhythm. I discussed with and supervised the resident physician who took care of this patient. I agree with the assessment and plan as above.
[2025-01-23 21:38] LABS: Troponin I 2.037 ng/mL (0.0-0.045)
--- NOTE | 2025-01-23 21:56 | PC.NURSE ---
Report called to floor nurse ZONIA Phillips
[2025-01-23] MEDS: MORPHINE SULF INJ 10 MG/ML VIAL IVP ×2 (22:13→23:14)
[2025-01-23] MEDS: Magnesium Sulfate 4 GM Ivpb 4 GM/50 ML BAG IV (23:23)
[2025-01-23] MEDS: HEPARIN SOD INJ 5000 UNIT/ML VIAL 4000 UNIT IV (23:25)
[2025-01-23] MEDS: Heparin/D5w 25K 250 ML Ivpb 25,000 UNIT/250 ML BAG 9.096 UNIT IV (23:26)
[2025-01-24] VITALS (20 sets, daily range): BP systolic 108–160; BP diastolic 52–138; PULSE 66–96; RESP 11–20; TEMP 36.2–36.8; O2SAT 91–98; BMI 29.5
[2025-01-24] MEDS: METOCLOPRAMIDE INJ 5 MG/ML VIAL 2 ML 10 MG IVP (00:19)
[2025-01-24 02:40] LABS: Troponin I 3.404 ng/mL (0.0-0.045)
[2025-01-24] MEDS: MORPHINE SULF INJ 10 MG/ML VIAL IVP ×3 (04:03→22:41)
[2025-01-24 05:58] LABS: Basophils # (Auto) 0.1 Thou/mm3 (0.0-0.2); Basophils % (Auto) 0 % (0-2.5); Eosinophils # (Auto) 0.0 Thou/mm3 (0.0-0.5); Eosinophils % (Auto) 0 % (0-10); Hematocrit 40.2 % (36.0-46.0); Hemoglobin 14.0 g/dL (12.0-16.0); Immature Granulocytes Auto 0.07 Thou/mm3 (0.00-0.00); Lymphocytes # (Auto) 2.0 Thou/mm3 (1.0-4.8); Lymphocytes % (Auto) 12 % (10-50); Mean Corpuscular HGB Conc 34.8 g/dl (31.0-37.0); Mean Corpuscular Hemoglobin 31.5 pg (25.0-35.0); Mean Corpuscular Volume 91 fL (80-100); Monocytes # (Auto) 1.1 Thou/mm3 (0.0-0.8); Monocytes % (Auto) 7 % (0-12); Neutrophils # (Auto) 12.8 Thou/mm3 (1.8-7.7); Neutrophils % (Auto) 80 % (37-80); Nucleated Red Blood Cell # 0.00 Thou/mm3 (0.00-0.00); Nucleated Red Blood Cell % 0 /100 WBC (0); Platelet Count 352 Thou/mm3 (140-440); RDW Standard Deviation 46.1 fL (36.4-46.3); Red Blood Count 4.44 Miln/mm3 (4.00-5.20); White Blood Count 16.0 Thou/mm3 (3.6-11.0)
[2025-01-24 06:09] LABS: INR 1.0 (0.9-1.3); Partial Thromboplastin Time 45.7 Seconds (22.0-36.0); Prothrombin Time 10.8 Seconds (9.0-12.2)
[2025-01-24 06:29] LABS: Alanine Aminotransferase 11 U/L (10-49); Albumin, Serum 4.5 gm/dL (3.4-4.8); Albumin/Globulin Ratio 1.6 (1.2-2.2); Alkaline Phosphatase 105 U/L (46-116); Anion Gap 9 (7-16); Aspartate Amino Transferase 47 U/L (0-34); BUN/Creatinine Ratio 13 Ratio (12-20); Bilirubin,Total 0.6 mg/dL (0.3-1.2); Blood Urea Nitrogen 9 mg/dL (9-23); Calcium 9.2 mg/dL (8.3-10.6); Calcium (Corrected) 9.2 mg/dL (8.5-10.1); Carbon Dioxide 26.4 mMol/L (20.0-31.0); Cardiac Risk Estimate 3.0 RATIO (3.7-5.6); Chloride 106 mMol/L (98-107); Cholesterol 152 mg/dL (132-200); Creatinine (Component) 0.7 mg/dL (0.6-1.3); Estimated Creatinine Clearance 67.7 mL/min (>60); Globulin 2.8 gm/dL (2.3-3.5); Glucose 131 mg/dL (74-106); HDL Cholesterol 50 mg/dL (40-60); LDL Cholesterol,Calculated 85 mg/dL (0-130); Osmolality,Calculated 281 (275-295); Potassium 3.7 mMol/L (3.4-5.1); Sodium 141 mMol/L (136-145); Thyroid Stimulating Hormone 3.91 uIU/mL (0.55-4.78); Total Protein 7.3 gm/dL (5.7-8.2); Triglycerides 87 mg/dL (30-150); eGFR > 60 See Note
[2025-01-24] MEDS: HEPARIN SOD INJ 5000 UNIT/ML VIAL 2000 UNIT IVP (06:36)
--- NOTE | 2025-01-24 08:00 | PC.SS ---
RN ORTHOPAEDIC conducted bedside contact with the patient conduct initial assessment and to discuss discharge planning.? Patient confirmed demographic information.? Patient resides at home with nephew, Dat Tran.? Patient is retired.? Patient confirms use of walker to assist with ambulation.? Patient does not utilize home oxygen.? Patient describes ability to complete ADL?s independently.? Patient identified son, Roque Barreto ; as medical surrogate decision maker.? Patient?s PCP is [facility].? Patient?s chamfering machine operator is Dr. Ness.? Patient does not participate with dialysis.? Patient confirmed access to basic utilities and provisions.? RN ORTHOPAEDIC discussed with the patient use of marijuana as reported in [facility].? Toxicology report not present in chart.? Patient confirmed use of marijuana to address history of anxiety and to relieve inflammation.? Patient reports use of marijuana since age 20.? Per patient use of marijuana does not interfere with daily functioning.? Patient reports that PCP is aware of marijuana use.? Plan is for the patient to return home at the time of discharge.? Patient informed RN ORTHOPAEDIC that if home health is recommended patient will not participate with resource due to previous negative experience with home health services.? Family will provide transportation on behalf of the patient. ?No further discharge needs identified by the patient.? No further intervention required at this time, social science analyst will be available to address any further concerns.? Next of Kin: Roque Barreto D/C Plan: Home
--- NOTE | 2025-01-24 08:02 | PC.SS ---
Update: Plan is for the patient to obtain angiogram today. Patient is currently NPO.
[2025-01-24] MEDS: CLOPIDOGREL BISULFATE 75 MG TABLET PO (08:17)
[2025-01-24] MEDS: ASPIRIN EC 81 MG TABEC PO (08:18)
[2025-01-24] MEDS: POTASSIUM CHL 10 mEq IVPB 10 MEQ/100 ML BAG 100 MEQ IV (08:18)
[2025-01-24] MEDS: ASPIRIN EC 81 MG TABEC 243 MG PO (08:46)
--- NOTE | 2025-01-24 08:52 | PD.RESPRO ---
Documentation for date of: 01/24/25 [facility] admission. Patient admitted for ACS rule out given chest pain with risk factors of previous history of CAD, patinet follows Dr. Ospina, Dr. Lama consulted. EKG no ST elevation. NSTEMI type I vs NStEMI type II. Patient started on hepairn drip, Aspirin, Plavix, and beta [place]. High intensity statins recommended. Currently NPO. Plan for left heart catherization for today. Subjective Subjective Interval history: Patient was seen and evaluated today at bedside. Patient acknowledged pain that she stated spread along her ribs. Patient endorsed chest pain. Patient denied any radiation of pain to jaw or shoulder. Patient denied shortness of breath at rest, but acknowledged increasing dyspnea on exertion when conducting daily activities of living, such as cleaning around the house. Patient denied paroxysmal nocturnal dyspnea and orthopnea. Patient denied abdominal pain. Trop uptrending from 0.05 on admission to 5.03 at 0800 and 6.739 at 1305. Patient given aspirin 243 mg x1 this morning. Patient to continue on Atorvastatin 40 mg, Coreg 6.25 mg BID, Plavix 75 mg PO QD, and Aspirin 81 mg PO QD. Patient reiterated history of CAD s/p x4. Patient normally follows cardiology, Dr. Ness. Left heart cath completed today, Dr. Lama, appreciate recommendations. Upgraded to ICU today. Exam Vital Signs Temp Pulse Resp BP Pulse Ox O2 Del Method 97.3 F 88 15 145/73 H 93 L Room Air 01/24/25 04:00 01/24/25 08:16 01/24/25 04:00 01/24/25 08:16 01/24/25 04:00 01/24/25 04:00 Narrative Exam General Appearance: Alert & Oriented to person, time, place, and condition; well-nourished female who is lying in bed in mild distress due to substernal discomfort. HEENT: Skull symmetrical and atraumatic. Conjunctivae pink and moist. Pupils equal, round, reactive to light and accommodation (PERRL). External ear without lesion or discharge. Straight, nares patient, mucosa pink, no discharge. No thyroid nodule appreciated. No cervical lymphadenopathy. Cardio: Normal Rate and Rhythm with S1 and S2 heart sounds. Possible aortic stenosis. No bruits on carotid auscultation. No peripheral edema or cyanosis. Lungs: Symmetric with good expansion. Chest and back non-tender. Breath sounds vesicular without crackles, wheezing or rhonchi Abdomen: Non-tender, Non-distended, Normal Reactive Bowel Sounds Neuro: Alert, cooperative, oriented to person, place, and time. Speech clear. CN grossly intact. Upper motor strength 5/5 and Lower motor strength 5/5. Diminished sensation left foot. Objective Labs 01/25/25 04:32 01/25/25 04:32 Labs: Laboratory Results - last 24 hr 01/23/25 01/23/25 01/23/25 12:19 14:45 16:00 WBC 16.2 H RBC 4.24 Hgb 13.3 Hct 38.4 MCV 91 MCH 31.4 MCHC 34.6 RDW Std Deviation 47.0 H Plt Count 318 Neut % (Auto) 74 Lymph % (Auto) 17 Oliver % (Auto) 5 Eos % (Auto) 3 Baso % (Auto) 1 Neut # (Auto) 12.0 H Lymph # (Auto) 2.7 Oliver # (Auto) 0.9 H Eos # (Auto) 0.4 Baso # (Auto) 0.1 Immature Gran # (Auto) 0.06 H Absolute Nucleated RBC 0.00 Immature Gran % 0 Nucleated RBC % 0 PT 10.9 INR 1.0 APTT 28.3 Sodium 138 Potassium 3.8 Chloride 105 Carbon Dioxide 23.3 Anion Gap 10 BUN 12 Creatinine 1.0 Estim Creat Clear Calc Not Performed. eGFR 59 L BUN/Creatinine Ratio 12 Glucose 174 H Calculated Osmolality 279 Calcium 9.6 Corrected Calcium 9.6 Magnesium 1.7 Total Bilirubin 0.7 AST 16 ALT < 7 L Alkaline Phosphatase 101 Troponin I 0.059 H* 0.180 H* B-Natriuretic Peptide 151 H Total Protein 7.2 Albumin 4.5 Globulin 2.7 Albumin/Globulin Ratio 1.7 Triglycerides Cholesterol LDL Cholesterol, Calc HDL Cholesterol Cholesterol/HDL Ratio TSH Ur Collection Type Clean Catch Urine Color Lt-Yellow Urine Clarity Turbid A Urine pH 6.0 Ur Specific Preston 1.016 Urine Protein 1+ A Urine Glucose (UA) Negative Urine Ketones Negative Urine Blood 2+ A Urine Nitrite Negative Urine Bilirubin Negative Urine Urobilinogen (Auto) Negative Ur Leukocyte Esterase Negative Urine RBC 5 H Urine WBC 1 Ur Squamous Epith Cells 16 H Urine Bacteria Rare Urine Yeast (Budding) Present A 01/23/25 01/24/25 01/24/25 20:46 02:11 05:26 WBC 16.0 H RBC 4.44 Hgb 14.0 Hct 40.2 MCV 91 MCH 31.5 MCHC 34.8 RDW Std Deviation 46.1 Plt Count 352 D Neut % (Auto) 80 Lymph % (Auto) 12 Oliver % (Auto) 7 Eos % (Auto) 0 Baso % (Auto) 0 Neut # (Auto) 12.8 H Lymph # (Auto) 2.0 Oliver # (Auto) 1.1 H Eos # (Auto) 0.0 Baso # (Auto) 0.1 Immature Gran # (Auto) 0.07 H Absolute Nucleated RBC 0.00 Immature Gran % 0 Nucleated RBC % 0 PT 10.8 INR 1.0 APTT 45.7 H D Sodium 141 Potassium 3.7 Chloride 106 Carbon Dioxide 26.4 Anion Gap 9 BUN 9 Creatinine 0.7 Estim Creat Clear Calc 67.7 eGFR > 60 BUN/Creatinine Ratio 13 Glucose 131 H Calculated Osmolality 281 Calcium 9.2 Corrected Calcium 9.2 Magnesium Total Bilirubin 0.6 AST 47 H ALT 11 Alkaline Phosphatase 105 Troponin I 2.037 H* D 3.404 H* D B-Natriuretic Peptide Total Protein 7.3 Albumin 4.5 Globulin 2.8 Albumin/Globulin Ratio 1.6 Triglycerides 87 Cholesterol 152 LDL Cholesterol, Calc 85 HDL Cholesterol 50 Cholesterol/HDL Ratio 3.0 L TSH 3.91 Ur Collection Type Urine Color Urine Clarity Urine pH Ur Specific Preston Urine Protein Urine Glucose (UA) Urine Ketones Urine Blood Urine Nitrite Urine Bilirubin Urine Urobilinogen (Auto) Ur Leukocyte Esterase Urine RBC Urine WBC Ur Squamous Epith Cells Urine Bacteria Urine Yeast (Budding) Quality Measures Quality Measures none Advance care planning discussed with:: patient Assessment & Plan Assessment Current Active Medications: Generic Name Dose Route Start Last Admin Trade Name Freq PRN Reason Stop Dose Admin Acetaminophen 650 mg 01/23/25 20:02 Acetaminophen 325 Mg Tablet PO 02/22/25 20:01 Q6H PRN PAIN SCALE 1-3 (mild Aspirin 81 mg 01/25/25 09:00 Aspirin Ec 81 Mg Tabec PO 02/24/25 08:59 QDAY ANASTACIO Atorvastatin Calcium 40 mg 01/23/25 21:45 01/24/25 00:30 Atorvastatin Calcium 20 Mg Tablet PO 02/22/25 21:44 Not Given HS ANASTACIO Carvedilol 6.25 mg 01/24/25 08:00 01/24/25 08:16 Carvedilol 3.125 Mg Tablet PO 02/23/25 07:59 6.25 mg BIDWM ANASTACIO Administration Clopidogrel Bisulfate 75 mg 01/24/25 09:00 01/24/25 08:17 Clopidogrel Bisulfate 75 Mg Tablet PO 02/23/25 08:59 75 mg QDAY ANASTACIO Administration Dextrose 25 ml 01/23/25 21:51 Dextrose 50%-Water Inj 50 Ml Syringe IV 02/22/25 21:50 Q15MIN PRN BG 50-70 responsive npo pt Dextrose 50 ml 01/23/25 21:51 Dextrose 50%-Water Inj 50 Ml Syringe IV 02/22/25 21:50 Q15MIN PRN BG <50 OR BG <70 & pt unresponsive Glucagon 1 mg 01/23/25 21:51 Glucagon Inj 1 Mg Vial IM Q15MIN PRN BG <70, and no IV access Heparin Sodium/Dextrose 25,000 unit in 250 mls @ 9.096 mls/hr 01/23/25 21:45 01/24/25 06:37 Heparin In D5w Ivpb IV 02/06/25 21:44 14 units/kg/hr .Q24H ANASTACIO 10.612 mls/hr Titration Protocol 12 UNITS/KG/HR Potassium Chloride 10 meq in 100 mls @ 100 mls/hr 01/24/25 07:26 01/24/25 08:48 Kcl Ivpb IV 01/24/25 10:25 75 mls/hr Q1H ANASTACIO Infusion Insulin Human Lispro 0 unit 01/24/25 00:00 01/24/25 05:35 Insulin Lispro (Admelog) 1 Unit/0.01 Ml Unit SC 02/23/25 00:00 Not Given Q6HR [facility] Protocol Labetalol HCl 10 mg 01/23/25 22:26 Labetalol Inj 5 Mg/Ml Vial 20 Ml IVP 02/22/25 21:43 Q6H PRN Systolic >185/105 and HR >75 Morphine Sulfate 1 mg 01/24/25 03:54 01/24/25 04:03 Morphine Sulf Inj 10 Mg/Ml Vial IVP 01/28/25 21:44 1 mg Q4HR PRN Administration Pain 7-10 Ondansetron HCl 4 mg 01/23/25 20:02 01/23/25 22:13 Ondansetron Inj 2 Mg/Ml Inj 2 Ml IVP 02/22/25 20:01 4 mg Q6H PRN Administration NAUSEA OR VOMITING Protocol Plan Plan Patient is a 74 year old female with significant past medical history, including CAD s/p x4 (most recent 2018), HTN, HLD, and right lower extremity neuropathy who presented to the ED 01/23 with substernal chest with radiation to the back and was admitted overnight for acute coronary syndrome, likely NSTEMI type 1. Cardiology consulted, Dr. Lama, left heart catherterization completed today 01/24. #Coronary Artery Disease #Acute Coronary Syndrome #Troponemia, concern for NSTEMI Type I vs Type 2 Patient has a significant history of coronary artery disease s/p stent x4 who presented to the ED with substernal chest pain that radiated to the back. Pain does not radiate to the jaw or upper extremities. Patient did not present with diaphoresis and continued to deny dyspnea at rest. Patient stated that she could feel like she was having a heart attack. Patient endorsed nausea and vomiting as well. Possible differentials: NSTEMI Type 1 is the likeliest cause due to the fact that the patient remains stable, yet troponin is uptrending; this is likelier than type 2 because the patient is not acutely ill and thus not suffering from demand ischemia from another organ system. One other possible diagnosis is STEMI, but given this patient's stability and ability to converse and rest, this is less likely. Another possible differential is PE, but this is unlikely given the patient is not tachycardic and not complaining of acute shortness of breath at rest. CXR 01/[address] Chest 01/23 demonstrated findings consistent with a calcified left anterior descending artery EKG 01/23 demonstrated S-T changes in leads V1-3, consistent with possible infarction Troponin upon admission were 0.05 and trended up to 5.03 01/24 0800 Patient given Aspirin 243 mgx1 morning of 01/24 Plan: -Upgraded to ICU today -Trend troponins -Consulted cardiology, Dr. Lama for left heart catheterization completed today, appreciate recommendations; patient followed cardiology, Dr. Ness in the past -Continue Aspirin 81 mg PO QD -Continue Plavix 75 mg PO QD -Continue Heparin drip -Continue Atorvastatin 40 mg PO QHS -Continue Coreg 6.25 mg PO BID -Morphine 1mg IVP Q4HR PRN for pain #Hypertensive Emergency #Hypertension Patient presented to the ED with SBP of 213, which subsequently reduced to the SBP 150s in the ED. Patient has a long standing history of HTN, likely from cardiac remodeling due to coronary artery disease. Patient has previously been on Lisinopril and Losartan. Plan: -Continue Coreg 6.25 mg PO BID -Hydralazine 10 mg IVP Q6H PRN #Hyperlipidemia Patient has a history of hyperlipidemia leading to coronary artery disease Pertinent labs: Lipid Panel 01/24/25 TG 87 TC 152 LDL 85 HDL 50, ASCVD Score 29.7% Plan: -Continue Atorvastatin 40 mg PO QHS -Monitor with repeat lipid panel #Leukocytosis #? Reactive Patient is experiencing increased stress to diminshed myocardial output, potentially leading to reactive leukocytosis. Pertinent labs: 01/23 WBC 16.2 01/24 WBC 16.0 #? Congestive Heart Failure Patient stated that they have worsening dyspnea on exertion, particularly when completing activities of daily living, like cleaning their house. Patient stated that they have family members help out now. Patient denied orthopnea and paroxysmal nocturnal dyspnea. No signs of JVP, crackles, and edema were present on physical examination. Pertinent labs: 01/23 BNP 151 Plan: -Echo ordered, pending results -Left heart catheterization, Dr. Lama, appreciate recommendations #? Pulmonary Arterial Hypertension Patient complained of increasing shortness of breath on exertion CT Chest 01/23 demonstrated findings consistent with pulmonary hypertension Possible differentiials: New onset CHF leading to vascular congestion given the patients increasing BNP of 151, CAD not allowing the patient's heart to pump effectively, AHRF leading to pulmonary vasoconstriction Plan: -Continue to monitor patient symptoms #Mild Transaminitis Patient denied abdominal pain. Possible causes: ischemic stress from CAD, hepatic cyst, medication induced via nitroglycerin Pertinent labs: 01/24 AST 47 ALT 11 Alk Phos 105 Plan: -Monitor liver enzymes -Hepatitis panel if concerning #Incidental Hepatic Cyst 8 mm cyst hepatic cyst discovered on 01/23 Chest CTA. Patient denied abdominal pain Plan: -Monitor liver enzymes, hepatitis panel if concerned -Follow-up outpatient #RLE Neuropathy Patient stated that her entire right foot is numb. Patient stated that they cannot ambulate on that foot with stability due to loss of sensation. Plan: -Physical therapy if needed for improved balance and coordination Health Maintenance: Lines: PIV Diet: Carbohydrate consistent Bowel: Not needed at this time GI prophylaxis: None DVT prophylaxis: Aspirin 81 mg PO QD, Plavix 75 mg PO QD Dispo: Cardiology consulted, Dr. Lama, appreciate recommendations Code: Full Case reviewed with attending Dr. Brown and senior resident Dr. Sanchez. Lashonda Blanton MS-4 - The patient's plan was discussed with attending Dr. Kevin Sanchez MD PGY2 Internal Medicine Attending Provider Attestation/Addendum I have examined the patient, reviewed labs and imaging findings, discussed the case with the resident(s), and reviewed entered orders. I agree with the plan of care as outlined in this note, with these additional summaries/recommendations: Patient seen at bedside. She endorses a significant cardiac history with 4 stent placements in the past. She presented to the ER with typical chest pain symptoms suggestive of acute coronary syndrome. Patient diagnosed with NSTEMI type I. Cardiology consulted, recommendations appreciated. Troponin continues to trend upward with most recent 5.033 and will continue to trend every 6 hours or until downtrend. Continue dual antiplatelet therapy with aspirin and Plavix. Continue anticoagulation with heparin gtt and target a APTT of 60 to 80 seconds. Continue atorvastatin 40 mg p.o. at bedtime for plaque stabilization. Continue Coreg for cardiac remodeling prevention. Order risk factor screening with lipid panel, TSH, and A1c. Echocardiogram pending. As needed morphine or nitro if chest pain returns. Leukocytosis present on hematology panel which is most likely reactive in nature with no evidence of acute infection at this time. No antibiotics needed as of now but will continue to monitor. Patient updated on the plan and agreement. All questions answered satisfaction. Please see residents note for additional details management. Dr. Kevin MD
[2025-01-24 08:53] LABS: Glucose Estimated Average 117 mg/dL (80-131); Hemoglobin A1C 5.7 % Hgb (4.8-6.0)
[2025-01-24 09:07] LABS: Magnesium 2.1 mg/dL (1.6-2.6)
[2025-01-24 09:08] LABS: Troponin I 5.033 ng/mL (0.0-0.045)
[2025-01-24] MEDS: Magnesium Sulfate 4 GM Ivpb 4 GM/50 ML BAG IV (09:45)
[2025-01-24 13:56] LABS: Partial Thromboplastin Time 53.6 Seconds (22.0-36.0)
--- NOTE | 2025-01-24 14:26 | PC.SS ---
rounding note: pt. alannah cardio rec. Will return home with son when medically cleared.
[2025-01-24 14:52] LABS: Troponin I 6.739 ng/mL (0.0-0.045)
[2025-01-24] MEDS: EPTIFIBATIDE IVPB 75 MG/100 ML VIAL 12.195 MG IV ×2 (16:23→23:38)
--- NOTE | 2025-01-24 16:58 | PD.RESCONSUL ---
HPI Data of Consult Requesting Physician: Ashutosh Stevens MD Admitting Provider: Ashutosh Stevens MD Attending Provider: Ashutosh Stevens MD Primary Care Provider: SARAVANAN King Consult Narrative History of present illness: The patient is a 74-year-old female with significant past medical history of CAD s/p stent placement x 4, first 1 in 1993 and last 1 in 2018, essential hypertension, hyperlipidemia, neuropathy, and chronic marijuana abuse presented to ED with chief complaint of acute onset chest pain on 01/23/2025. During the presentation, patient reported substernal chest pain, severe in intensity, stabbing in nature, radiated to her jaw, and upper extremities. The patient tried deep inspiration, but did not really help, but reported mild improvement with sitting upright. However, when I saw the patient in the morning, the patient denied any chest pain, SOB, orthopnea or PND, leg edema, dizziness or palpitation. Of note, the patient has been following up with Dr. Jefferson and her last appointment was 3 months ago. During my evaluation, the patient blood pressure was 145/73, pulse rate 88, saturating 98% on room air. Labs revealed white count 16.0, sodium 141, potassium 3.7, BUN 9, creatinine 0.7, A1c 5.7, magnesium 2.1, troponin that started with 0.059, significantly trended up with 0.180, 2.037, 3.404, 5.033. Lipid panel revealed total cholesterol 152, LDL 85, HDL 50, TSH 3.91, EKG was significant for inferior and anterolateral wall in the NSTEMI. Chest x-ray revealed no active disease, CTA chest revealed heavy calcification on left anterior descending coronary artery. PMH: As mentioned above SHX: As mentioned above Medications: Plavix, losartan 100 Mg and amlodipine 5 Mg daily, atorvastatin 40 Mg daily, nitroglycerin 0.4 Mg as needed for pain. Family history: Significant family history of CAD with CABG and CT in father and secondary family members with hypertension Social history: Currently lives with nephew, smokes 4-6 marijuana ports daily, denies any tobacco use, ambulatory using walker Allergies: No known allergies Cardiology consultation was done for further management of ACS. cc:: cc: Ashutosh Stevens MD Review of Systems Review of Systems Systems Reviewed: All systems reviewed, normal except as documented (Above) Exam Vital Signs Temp Pulse Resp BP Pulse Ox O2 Del Method 97.5 F 82 17 131/92 H 97 Room Air 01/24/25 14:17 01/24/25 14:17 01/24/25 14:17 01/24/25 14:17 01/24/25 14:17 01/24/25 14:17 Narrative Exam General: Cooperative, well-nourished female, no acute distress, Alert and Oriented x 3 HEENT: Moist mucous membranes, oropharynx clear Neck: Supple, No masses, No JVD CVS: S1S2 Regular rate and rhythm, No murmurs, rubs or gallops Lungs: Clear to auscultation with no accessory use, no wheeze no rhonchi Abd: Soft, NT/ND, +BS, no organomegaly Ext: No edema, warm and well perfused Skin: No rash Psych: Appropriate mood and affect Results Labs 01/24/25 05:26 01/24/25 05:26 Labs: Short CBC 01/24/25 Range/Units 05:26 WBC 16.0 H (3.6-11.0) Thou/mm3 Hgb 14.0 (12.0-16.0) g/dL Hct 40.2 (36.0-46.0) % Plt Count 352 D (140-440) Thou/mm3 BMP 01/24/25 05:26 Sodium 141 Potassium 3.7 Chloride 106 Carbon Dioxide 26.4 BUN 9 Creatinine 0.7 Glucose 131 H Calcium 9.2 Cardiac Enzymes 01/23/25 01/24/25 01/24/25 Range/Units 20:46 02:11 08:05 Troponin I 2.037 H* D 3.404 H* D 5.033 H* D (0.0-0.045) ng/mL 01/24/25 Range/Units 13:05 Troponin I 6.739 H* D (0.0-0.045) ng/mL Liver Function 01/24/25 Range/Units 05:26 Total Bilirubin 0.6 (0.3-1.2) mg/dL AST 47 H (0-34) U/L ALT 11 (10-49) U/L Alkaline Phosphatase 105 (46-116) U/L Albumin 4.5 (3.4-4.8) gm/dL Urine 01/23/25 Range/Units 16:00 Urine Color Lt-Yellow (Lt Yel-Yel) Urine Clarity Turbid A (Clear/Hazy) Urine pH 6.0 (5.0-7.0) Ur Specific Clark 1.016 (1.001-1.035) Urine Protein 1+ A (Neg - Trace) Urine Glucose (UA) Negative (Negative) Quality Measures Quality Measures none Advance care planning discussed with:: patient Medications Home Medications and Allergies Home Medications ?Medication ?Instructions ?Recorded ?Confirmed ?Type ezetimibe 10 mg tablet (Zetia) 10 mg PO QDAY #0 tabs 11/20/13 01/24/25 History aspirin 81 mg chewable tablet 81 mg PO QDAY ##0 11/14/15 01/24/25 History clopidogrel 75 mg tablet (Plavix) 75 mg PO QDAY #0 tabs 02/02/17 01/24/25 History celecoxib 200 mg capsule 200 mg PO QDAY 11/23/18 01/24/25 History hydrocodone 7.5 mg-acetaminophen 1 tab PO Q6H PRN Pain 11/23/18 01/24/25 History 325 mg tablet (Ceiba) amlodipine 5 mg tablet 5 mg PO DAILY 01/24/25 01/24/25 History losartan 100 mg tablet 100 mg PO DAILY 01/24/25 01/24/25 History Allergies Allergy/AdvReac Type Severity Reaction Status Date / Time No Known Allergies Allergy Verified 01/23/25 11:56 Visit Medications Acetaminophen (Acetaminophen 325 Mg Tablet) 650 mg PO Q6H PRN PRN Reason: PAIN SCALE 1-3 (mild Stop: 02/22/25 20:01 Aspirin (Aspirin Ec 81 Mg Tabec) 81 mg PO QDAY [facility] Stop: 02/24/25 08:59 Atorvastatin Calcium (Atorvastatin Calcium 20 Mg Tablet) 40 mg PO HS [facility] Stop: 02/22/25 21:44 Last Admin: 01/24/25 00:30 Dose: Not Given Carvedilol (Carvedilol 3.125 Mg Tablet) 6.25 mg PO BIDWM [facility] Stop: 02/23/25 07:59 Last Admin: 01/24/25 08:16 Dose: 6.25 mg Clopidogrel Bisulfate (Clopidogrel Bisulfate 75 Mg Tablet) 75 mg PO QDAY [facility] Stop: 02/23/25 08:59 Last Admin: 01/24/25 08:17 Dose: 75 mg Dextrose (Dextrose 50%-Water Inj 50 Ml Syringe) 25 ml IV Q15MIN PRN PRN Reason: BG 50-70 responsive npo pt Stop: 02/22/25 21:50 Dextrose (Dextrose 50%-Water Inj 50 Ml Syringe) 50 ml IV Q15MIN PRN PRN Reason: BG <50 OR BG <70 & pt unresponsive Stop: 02/22/25 21:50 Glucagon (Glucagon Inj 1 Mg Vial) 1 mg IM Q15MIN PRN PRN Reason: BG <70, and no IV access Heparin Sodium/Dextrose (Heparin In D5w Ivpb) 25,000 unit in 250 mls @ 9.096 mls/hr IV .Q24H ANASTACIO; Protocol Stop: 02/06/25 21:44 Last Titration: 01/24/25 06:37 Dose: 14 units/kg/hr, 10.612 mls/hr Insulin Human Lispro (Insulin Lispro (Admelog) 1 Unit/0.01 Ml Unit) 0 unit SC Q6HR ANASTACIO; Protocol Stop: 02/23/25 00:00 Last Admin: 01/24/25 13:21 Dose: Not Given Labetalol HCl (Labetalol Inj 5 Mg/Ml Vial 20 Ml) 10 mg IVP Q6H PRN PRN Reason: Systolic >185/105 and HR >75 Stop: 02/22/25 21:43 Morphine Sulfate (Morphine Sulf Inj 10 Mg/Ml Vial) 1 mg IVP Q4HR PRN PRN Reason: Pain 7-10 Stop: 01/28/25 21:44 Last Admin: 01/24/25 09:09 Dose: 1 mg Ondansetron HCl (Ondansetron Inj 2 Mg/Ml Inj 2 Ml) 4 mg IVP Q6H PRN; Protocol PRN Reason: NAUSEA OR VOMITING Stop: 02/22/25 20:01 Last Admin: 01/23/25 22:13 Dose: 4 mg Discontinued Medications Hydrocodone Bitart/Acetaminophen (Hydrocodone/Apap 5/325 Tablet) 1 tab PO X1 ONE Stop: 01/23/25 12:24 Last Admin: 01/23/25 12:31 Dose: 1 tab Al Hydrox/Mg Hydrox/Simethicone (Mg Hyd/Al Hyd/Vanna (Maalox Reg) Susp 30 Ml Udc) 30 ml PO X1 ONE Stop: 01/23/25 13:10 Last Admin: 01/23/25 15:21 Dose: 30 ml Aspirin (Aspirin Ec 81 Mg Tabec) 81 mg PO QDAY ANASTACIO Stop: 02/23/25 08:59 Last Admin: 01/24/25 08:18 Dose: 81 mg Aspirin (Aspirin Ec 81 Mg Tabec) 243 mg PO X1 ONE Stop: 01/24/25 08:46 Last Admin: 01/24/25 08:46 Dose: 243 mg Famotidine (Famotidine Inj 10 Mg/Ml Vial 2 Ml) 20 mg IVP X1 ONE Stop: 01/23/25 13:10 Last Admin: 01/23/25 13:20 Dose: 20 mg Heparin Sodium (Porcine) (Heparin Sod Inj 5000 Unit/Ml Vial) 4,000 unit IV X1 ONE; Protocol Stop: 01/23/25 21:41 Last Admin: 01/23/25 23:25 Dose: 4,000 unit Heparin Sodium (Porcine) (Heparin Sod Inj 5000 Unit/Ml Vial) 2,000 unit IVP X1 ONE Stop: 01/24/25 06:30 Last Admin: 01/24/25 06:36 Dose: 2,000 unit Nitroglycerin/Dextrose (Nitroglycerin In D5w Ivpb) 50 mg in 250 mls @ 1.5 mls/hr IV .Q24H PRN; Protocol PRN Reason: PER PROTOCOL Stop: 02/22/25 15:58 Last Titration: 01/23/25 22:05 Dose: 0 mcg/min, 0 mls/hr Magnesium Sulfate (Magnesium Sulfate Ivpb) 4 gm in 50 mls @ 12.5 mls/hr IV X1 ONE Stop: 01/24/25 01:58 Last Admin: 01/24/25 09:45 Dose: 12.5 mls/hr Potassium Chloride (Kcl Ivpb) 10 meq in 100 mls @ 100 mls/hr IV Q1H ANASTACIO Stop: 01/24/25 10:25 Last Admin: 01/24/25 13:23 Dose: Not Given Labetalol HCl (Labetalol Inj 5 Mg/Ml Vial 20 Ml) 10 mg IVP Q6H PRN PRN Reason: Systolic >200/105 and HR >75 Stop: 02/22/25 21:43 Metoclopramide HCl (Metoclopramide Inj 5 Mg/Ml Vial 2 Ml) 10 mg IVP X1 ONE; Protocol Stop: 01/23/25 23:48 Last Admin: 01/24/25 00:19 Dose: 10 mg Morphine Sulfate (Morphine Sulf Inj 10 Mg/Ml Vial) 2 mg IVP Q30M PRN PRN Reason: CHEST PAIN Stop: 01/24/25 13:09 Last Admin: 01/23/25 17:10 Dose: 2 mg Morphine Sulfate (Morphine Sulf Inj 10 Mg/Ml Vial) 4 mg IVP X1 ONE Stop: 01/23/25 15:15 Last Admin: 01/23/25 15:21 Dose: 4 mg Morphine Sulfate (Morphine Sulf Inj 10 Mg/Ml Vial) 1 mg IVP Q6HR PRN PRN Reason: Pain 7-10 Stop: 01/28/25 21:44 Last Admin: 01/23/25 22:13 Dose: 1 mg Morphine Sulfate (Morphine Sulf Inj 10 Mg/Ml Vial) 1 mg IVP X1 ONE Stop: 01/23/25 22:53 Last Admin: 01/23/25 23:14 Dose: 1 mg Nitroglycerin (Nitroglycerin Oint 2% 1 Inch Packet) 1 inch TOP X1 ONE Stop: 01/23/25 13:16 Last Admin: 01/23/25 13:27 Dose: 1 inch Ondansetron HCl (Ondansetron Inj 2 Mg/Ml Inj 2 Ml) 4 mg IVP X1 ONE; Protocol Stop: 01/23/25 13:11 Last Admin: 01/23/25 13:21 Dose: 4 mg Potassium Chloride (Potassium Chloride 20 Meq Tabcr) 40 meq PO X1 ONE Stop: 01/23/25 22:00 Last Admin: 01/24/25 00:30 Dose: Not Given Potassium Chloride (Potassium Chloride 20 Meq Tabcr) 40 meq PO X1 ONE Stop: 01/24/25 09:05 Last Admin: 01/24/25 09:39 Dose: 40 meq Assessment & Plan Plan The patient is a 74-year-old female with significant past medical history of CAD s/p stent placement x 4, first 1 in 1993 and last 1 in 2018, essential hypertension, hyperlipidemia, neuropathy, and chronic marijuana abuse presented to ED with chief complaint of acute onset chest pain on 01/23/2025. Cardiology consultation was done for further management of ACS. #NSTEMI #CAD s/p stents x 4 #Hyperlipidemia The patient initially presented with acute onset chest pain, severe in intensity, radiating to jaw, and upper extremities, and EKG was significant for an NSTEMI on inferior and lateral leads. - Continue on heparin drip - Aspirin 325 Mg chewable x 1 - Trend troponin until delta is received, if troponin elevates, repeat EKG. - Telemetry monitoring - Plan to perform left heart cardiac catheterization today - Carvedilol 6.25 Mg twice daily - Atorvastatin 40 Mg daily #Hypertensive emergency, resolved #PAH #Hypertension -Continue with carvedilol 6.25 Mg twice daily for now - Resume home medications as tolerated, starting with MARIO inhibitors/ARB #Leukocytosis, likely reactive #Marijuana abuse disorder #Liver cyst #Left hip MSK disorder - Management deferred to primary hospitalist team Thank you for cardiology consultation. We appreciate the opportunity to participate in this patient's care. Cardiology team will continue to follow-up on this patient. The patient's management plan was discussed with my attending physician MD Thiago Kate MD, PGY3 Attending Provider Attestation/Addendum I have personally seen and examined the patient separately on the above date of service and discussed the plan of care with the resident. I reviewed the resident Dr. Thiago Reilly consultation progress note and agree with the resident findings and plan in the note above and have also edited the documentation to reflect my findings and plan. A 74-year-old female with a past medical history of severe CAD status post PCI with 4 stents placed in LAD, ramus, 100% NAILER HAND of the RCA in 2019 initial PCI in 1993 and last PCI more than 10 years ago in 2016, last cath in 2019, essential hypertension, hyperlipidemia, significant marijuana use more than 6 times per day, neuropathy presented to the emergency department for further evaluation of acute onset of chest pain 01/23/2025. NSTEMI type I-acute coronary syndrome Initial troponins was 0.104, repeat troponin was 0.18 and the troponins continue to rise from 2.2, 3.0 and eventually 5.4. Given patient's typical chest pain symptoms along with rising troponins decision was made to perform an urgent left heart cardiac catheterization due to suspicion of acute coronary syndrome and NSTEMI type I. All the risk benefits and alternatives of left heart cardiac were explained in detail including the risk of bleeding, heart attack, stroke and in detail. Patient agreeable for the procedure and provided the consent. H&P updated. Patient was given heparin bolus with infusion since admission yesterday and recommend to continue it until the procedure. Check TSH A1c and lipid profile for further cardiac risk stratification. Aspirin, high intensity statin as well as beta-[place] if blood pressure permissible. Recommend no further troponins. Hypertensive emergency Patient is a presented with hypertensive emergency on admission mostly secondary to the pain and her medication compliance is unclear Patient on ARB as well as amlodipine at home and now that the patient has possible CT with a history of CAD recommended to start on Coreg 6.25 mg twice daily and will continue to uptitrate medications based on the blood pressure. Hyperlipidemia-on statin and check lipid profile Significant marijuana use of more than 6 times per day and recommended to completely quit it. Unclear of other drug abuse and check a U tox. There is a high probability of sudden, clinically significant or life threatening deterioration in the patient condition which required the highest level of physician preparedness to intervene urgently. I have personally spent 65 minutes of critical care time, exclusive of time spent on any procedures, in evaluation and management of this critically ill patient. Management of rest of the medical conditions as per primary team and other consultants. Thank you for the consult and allowing me to participate in the care of the patient. Cardiology will continue to follow. Saturnino Lama M.D. Interventional Cardiology
--- NOTE | 2025-01-24 17:00 | PD.CARDCATH ---
Cardiac Cath Procedure Procedure Name DATE OF PROCEDURE: 01/24/2025 PROCEDURE PERFORMED: 1. Left heart cardiac catheterization including right, left coronary angiograms and left ventriculogram 2. Successful high complex PCI performed for the severe 100% thrombotic occlusion along with in-stent restenosis of mid LAD and severe disease in the proximal and the mid LAD. 3. Successful PCI performed with a 3.0 x 28 mm Xience FRANK stent to the ostium, proximal LAD overlapping with the 2.5 x 22 mm Chandler FRANK stent placed in the mid LAD along with successful PTCA of the thrombotic occlusion and the in-stent restenosis of the old stents in the mid LAD with excellent results and no residual stenosis or complications 4. Ultrasound-guided access of the right radial artery 5. 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 Initial troponins were 0.104, repeat troponin was 0.18 and the troponins continue to rise from 2.2, 3.0 and eventually 5.4. Given patient's typical chest pain symptoms along with rising troponins decision was made to perform an urgent left heart cardiac catheterization due to suspicion of acute coronary syndrome - NSTEMI type 1. All the risk benefits and alternatives of left heart cardiac were explained in detail including the risk of bleeding, heart attack, stroke and in detail. Patient agreeable for the procedure and provided the consent. H&P updated. DESCRIPTION OF PROCEDURE: The patient was brought to the cardiac catheterization lab analysis the precautions were followed. Patient was given 1 Mg of Versed and 50 mcg of fentanyl for moderate conscious sedation. 2 mL of lidocaine was given in the right wrist. The right radial artery was accessed via the ultrasound guidance as well as micropuncture technique. A 6 Sudanese glide sheath was introduced. We then used a 6 Sudanese TIG 4 catheter to perform the left coronary angiogram as well as a left ventriculogram which showed the following findings. A EBU 3.5 catheter was used to perform the PCI of the LAD. 1. Right dominant circulation 2. Left main artery is a large artery with significant calcification and mild disease. 2. LAD is a large size artery with extensive calcification, 100% thrombotic occlusion as well as in-stent restenosis of the mid LAD stents, severe disease noted in the proximal to mid LAD with around 80% stenosis with minimal bridging of 5 to 10 mm. 3. Ramus intermedius or high diagonal noted with calcification, patent stent and mild disease. 4. LCx is a large sized artery with with mild calcification mild disease. Severe 80 to 90% stenosis noted in the medium to large proximal OM 2 with JERALD-3 flow. OM1 small artery. 4. RCA is large size artery and ADMINISTRATIVE STAFF SUPERVISOR with 100. Lesion in the proximal segment but receives excellent collaterals to the PDA and PL branches from the left side and elevated right to left collaterals to the RV marginal branch. Decision was made to perform the PCI of the LAD given his acute 100% thrombotic occlusion and in-stent restenosis of the mid LAD showing JERALD 0 flow. INTERVENTION: An EBU 3.5 was used to engage the left main artery. Patient was given weight-based heparin and ACT was greater than 250 although the procedure. Run-through guidewire was used to cross the lesion in the mid LAD without any complications. We then used 2.0 x 12 mm semicompliant balloon to perform multiple dilatations on the mid LAD to the distal LAD with return of JERALD-3 flow. A 2.5 x 15 mm NC balloon was then used to perform repeat multiple dilatation of the same segments within the old stents. There was no flow again noted from the mid LAD to the distal LAD. Given the suspicion for no reflow phenomenon 200 mcg of intracoronary nitroglycerin was given with minimal response. Possible antegrade dissection was suspected and repeat blood dilatations were performed from the mid to distal LAD with a 2.5 mm x 12 mm semicompliant balloon. We then used a 2.5 x 22 mm Chandler FRANK stent and overlapped it with the old stents in the mid LAD up to the proximal LAD with the return of JERALD-3 flow again. Unfortunately patient was noted to have significant thrombus burden again in the proximal LAD, mid LAD as well as the distal LAD. Patient ACT was 247 when it was measured the second time and was given additional 2000 units of heparin. Given the presence of thrombus again and decision was made to give Integrilin double bolus along with the drip which improved the JERALD-3 flow. Eventually 2.75 x 28 mm Xience FRANK stent was placed from the ostial LAD to overlapping with the earlier Chandler stent placed in the mid LAD. The ostial and the proximal segments of the LAD were postdilated with a 3.0 x 15 mm NC balloon with excellent results, return of JERALD-3 flow and no other complications. Final angiographic pictures were taken and all interventional equipment was removed. ACC data: Preprocedure: 100% thrombotic occlusion with in-stent restenosis of the old mid LAD stents with JERALD 0 flow Post procedure: Mid LAD with residual 30% stenosis which is mostly in-stent restenosis of the old stents and return of JERALD-3 flow Preprocedure:-Mid LAD with 80 % stenosis with JERALD-0 flow Post procedure: Mid LAD with 0% residual stenosis with JERALD-3 flow Preprocedure:-Ostial and proximal LAD with small dissection noted with ISR and JERALD-3 flow Post procedure: Ostial and proximal LAD with 0% residual stenosis with JERALD-3 flow Patient was only on Plavix at home which was continued this morning. No aspirin was given. 3 and 5 mg of aspirin was given along with blood and 80 mg Brilinta in the Transportation Department Head. Patient was given heparin total of 9000 units during the procedure and ACT was maintained above 250. A radial band was used to achieve the hemostasis of the right radial artery access. Patient will be monitored in the cardiac Transportation Department Head for the next 2 to 3 hours and will be admitted to the ICU for overnight monitoring as patient had recurrent closure with no flow in the LAD as mentioned above. Complications: None Specimens: None Blood loss: Estimated 10 ML Summary/findings: 1. LHC showed severe calcified multivessel disease with 100% thrombotic occlusion of the mid LAD along with in-stent restenosis of the previous old stents. 100% occluded RCA proximal RCA from 2019 with excellent [id number] collaterals as well as limited right right collaterals. Ramus is also calcified with mild disease. LCx is a large size artery with small OM1, medium to large OM 2 which showed severe 80 to 90% in the proximal OM 2. All coronary arteries appeared to be significantly calcified. 2. Successful high complex PCI performed for severe 100% thrombotic occlusion along with in-stent restenosis of mid LAD and severe disease in the proximal and the mid LAD. 3. Successful PCI performed with a 3.0 x 28 mm Xience FRANK stent to the ostium, proximal LAD overlapping with the 2.5 x 22 mm Walt FRANK stent placed in the mid LAD along with successful PTCA of the thrombotic occlusion and the in-stent restenosis of the old stents in the mid LAD with excellent results and no residual stenosis or complications Recommendations: 1. Recommend to admit to ICU for overnight monitoring with the Integrilin drip for another 12 hours given the recurrent occlusion of the LAD and the high complex PCI. 2. Dual antiplatelet therapy with aspirin 81 mg once daily lifetime and Brilinta 90 mg twice daily for at least 1 year. High intensity statin and beta-blockers if BP is permissible. 2. Recommend aggressive risk factor modification and counseled patient extensively about quitting marijuana use completely. 3. Patient recommended not to lift any weight more than 5 to 10 pounds for the next 7 days and follow-up with me in the office in 7 days after discharge. Saturnino Lama MD Interventional Cardiology.
--- NOTE | 2025-01-24 18:10 | PD.RESCONSUL ---
HPI Data of Consult Patient: new to practice Consult date: 01/24/25 Requesting Physician: Ashutosh Stevens MD Admitting Provider: Ashutosh Stevens MD Attending Provider: Donte Rushing MD Primary Care Provider: SARAVANAN King Consult Narrative Reason for consult: Status post cardiac catheterization History of present illness: Ms. Alonso is a 74-year-old female with past medical history of coronary artery disease status post stent placement x 4 (last one in 2018 and first 1 in 1993), hypertension, hyperlipidemia, neuropathy and marijuana use disorder presenting to the ED on 01/23 with acute chest pain. Patient states that the pain is substernal region and feels like a stabbing sensation that radiates to her back (right shoulder) with no radiation to her jaw or upper extremities. Patient reported that the uncomfortable sensation in her chest started about 2 weeks ago, has been progressing since then and over the weekend became uncontrollably worse, patient also reported diaphoresis at home along with some nausea and vomiting in the emergency department. Patient's pain does not subside with deep inspiration and she feels slightly better when she is sitting upright. Of note, patient follows up with chemical operator Dr. Ness and her last appointment was about 3 months ago; moreover, she was scheduled for another appointment for reassessment and imaging. Patient denies having any history of heart failure and denies having any orthopnea, paroxysmal nocturnal dyspnea, lower extremity edema or cough. In the ED, patient presented in hypertensive emergency with a blood pressure of 213/92, heart rate of 75 with some bouts of tachycardia is high as 102, respiratory rate within normal limits, afebrile satting 98 but currently 90 on room air. Pertinent lab findings in ED included WBC of 16.2, hemoglobin 13.3, potassium 3.8, creatinine 1.0, BUN 12, EGFR 59, magnesium 1.7, troponin initially 0.059 has uptrend to 0.180 and is currently 2.037. BNP of 151, urinalysis shows no signs of infection. EKG shows sinus rhythm with possible ST changes noted in V1?V3 and reciprocal changes in leads I. Chest x-ray shows no active disease in chest CTA shows heavy calcification of the LAD, mild enlargement of the left atrium and left ventricle, 8 mm liver cyst and PAH pattern noted Patient will be admitted to telemetry for NSTEMI type I on heparin drip with cardiology consulted for possible left heart cath. 01/24/2025: Patient seen and examined at bedside in cardiac [facility], patient was admitted overnight, taken to cardiac [facility] today. In [facility] patient found to have multivessel disease, underwent angioplasty and stent placement in LAD, 2 stents were placed in LAD by chemical operator. Considering patient has multivessel disease, cardiology recommends Integrilin drip overnight, patient will be observed closely in ICU overnight for any chest pain will reach out to chemical operator as needed. Otherwise patient at bedside reports active history of smoking in the past and current heavy marijuana use daily, patient informed to abstain from marijuana use. Patient's access site on right radial looks stable, no hematoma, dressing intact. Otherwise we will continue Brilinta and aspirin. Patient is on Coreg 6.25 mg daily, pending echocardiogram. cc:: cc: Ashutosh Stevens MD Review of Systems Review of Systems Systems Reviewed: All systems reviewed, normal except as documented Past Medical History Past Medical History Comments PMH COMMENT: Medical history: As stated above Surgical history: Angioplasty with 4 stents placed ([id number]) Allergies: NKDA Medications: Patient on Plavix for CAD, losartan 100 and amlodipine 5 for hypertension and statin medication, pending med rec Family history: Patient has significant family history of coronary artery disease with CABG and MN in father and secondary family members with hypertension Social history: Patient currently lives with nephew, smokes marijuana daily since he was a teenager, reports history of tobacco use in the past, reports about greater than 40 pack years, Patient normally ambulates using a walker secondary to neuropathy Exam Vital Signs Temp Pulse Resp BP Pulse Ox O2 Del Method 97.1 F 91 11 L 160/138 H 95 Room Air 01/24/25 17:15 01/24/25 17:15 01/24/25 17:15 01/24/25 17:15 01/24/25 17:15 01/24/25 17:15 Narrative Exam Physical Exam: GENERAL: Awake, answering questions appropriately, appears stated age, in [place]. HEENT: NC/AT. Moist mucosa. PERRLA/EOMI. CARDIO: Heart RRR, no obvious murmurs, no JVD. PULM: No coughing or visible SOB. Lungs CTA B/L. GI: Abdomen soft, NT/ND, +BS. SKIN/MSK/EXT: Tenderness elicited on left hip. No wounds/discoloration/rashes/edema/amputations. +Pedal pulses present B/L. Right radial access site, appropriate dressing intact. NEURO: Alert & Oriented x3, Moves extremities x4, decreased sensation to pinprick and vibration on right foot but motor strength 5 out of 5 on bilateral lower extremities, no focal neurologic deficits noted Results Labs 01/25/25 04:32 01/25/25 04:32 Labs: Short CBC 01/24/25 Range/Units 05:26 WBC 16.0 H (3.6-11.0) Thou/mm3 Hgb 14.0 (12.0-16.0) g/dL Hct 40.2 (36.0-46.0) % Plt Count 352 D (140-440) Thou/mm3 BMP 01/24/25 05:26 Sodium 141 Potassium 3.7 Chloride 106 Carbon Dioxide 26.4 BUN 9 Creatinine 0.7 Glucose 131 H Calcium 9.2 Cardiac Enzymes 01/23/25 01/24/25 01/24/25 Range/Units 20:46 02:11 08:05 Troponin I 2.037 H* D 3.404 H* D 5.033 H* D (0.0-0.045) ng/mL 01/24/25 Range/Units 13:05 Troponin I 6.739 H* D (0.0-0.045) ng/mL Liver Function 01/24/25 Range/Units 05:26 Total Bilirubin 0.6 (0.3-1.2) mg/dL AST 47 H (0-34) U/L ALT 11 (10-49) U/L Alkaline Phosphatase 105 (46-116) U/L Albumin 4.5 (3.4-4.8) gm/dL Quality Measures Quality Measures none Advance care planning discussed with:: patient Medications Home Medications and Allergies Home Medications ?Medication ?Instructions ?Recorded ?Confirmed ?Type ezetimibe 10 mg tablet (Zetia) 10 mg PO QDAY #0 tabs 11/20/13 01/24/25 History aspirin 81 mg chewable tablet 81 mg PO QDAY ##0 11/14/15 01/24/25 History hydrocodone 7.5 mg-acetaminophen 1 tab PO Q6H PRN Pain 11/23/18 01/24/25 History 325 mg tablet ([place]) amlodipine 5 mg tablet 5 mg PO DAILY 01/24/25 01/24/25 History losartan 100 mg tablet 100 mg PO DAILY 01/24/25 01/24/25 History Allergies Allergy/AdvReac Type Severity Reaction Status Date / Time No Known Allergies Allergy Verified 01/23/25 11:56 Visit Medications Acetaminophen (Acetaminophen 325 Mg Tablet) 650 mg PO Q6H PRN PRN Reason: PAIN SCALE 1-3 (mild Stop: 02/22/25 20:01 Aspirin (Aspirin Ec 81 Mg Tabec) 81 mg PO QDAY [facility] Stop: 02/24/25 08:59 Aspirin (Aspirin 81 Mg Chew) 81 mg PO QDAY [facility] Stop: 02/24/25 08:59 Atorvastatin Calcium (Atorvastatin Calcium 20 Mg Tablet) 40 mg PO HS [facility] Stop: 02/22/25 21:44 Last Admin: 01/24/25 00:30 Dose: Not Given Carvedilol (Carvedilol 3.125 Mg Tablet) 6.25 mg PO BIDWM [facility] Stop: 02/23/25 07:59 Last Admin: 01/24/25 08:16 Dose: 6.25 mg Clopidogrel Bisulfate (Clopidogrel Bisulfate 75 Mg Tablet) 75 mg PO QDAY [facility] Stop: 02/23/25 08:59 Last Admin: 01/24/25 08:17 Dose: 75 mg Dextrose (Dextrose 50%-Water Inj 50 Ml Syringe) 25 ml IV Q15MIN PRN PRN Reason: BG 50-70 responsive npo pt Stop: 02/22/25 21:50 Dextrose (Dextrose 50%-Water Inj 50 Ml Syringe) 50 ml IV Q15MIN PRN PRN Reason: BG <50 OR BG <70 & pt unresponsive Stop: 02/22/25 21:50 Glucagon (Glucagon Inj 1 Mg Vial) 1 mg IM Q15MIN PRN PRN Reason: BG <70, and no IV access Heparin Sodium/Dextrose (Heparin In D5w Ivpb) 25,000 unit in 250 mls @ 9.096 mls/hr IV .Q24H [facility]; Protocol Stop: 02/06/25 21:44 Last Titration: 01/24/25 06:37 Dose: 14 units/kg/hr, 10.612 mls/hr Eptifibatide (Integrilin Ivpb) 75 mg in 100 mls @ 12.195 mls/hr IV X1 ONE Stop: 01/25/25 01:43 Last Admin: 01/24/25 16:23 Dose: 2 mcg/kg/min, 12.195 mls/hr Insulin Human Lispro (Insulin Lispro (Admelog) 1 Unit/0.01 Ml Unit) 0 unit SC Q6HR ANASTACIO; Protocol Stop: 02/23/25 00:00 Last Admin: 01/24/25 17:43 Dose: Not Given Labetalol HCl (Labetalol Inj 5 Mg/Ml Vial 20 Ml) 10 mg IVP Q6H PRN PRN Reason: Systolic >185/105 and HR >75 Stop: 02/22/25 21:43 Morphine Sulfate (Morphine Sulf Inj 10 Mg/Ml Vial) 1 mg IVP Q4HR PRN PRN Reason: Pain 7-10 Stop: 01/28/25 21:44 Last Admin: 01/24/25 09:09 Dose: 1 mg Ondansetron HCl (Ondansetron Inj 2 Mg/Ml Inj 2 Ml) 4 mg IVP Q6H PRN; Protocol PRN Reason: NAUSEA OR VOMITING Stop: 02/22/25 20:01 Last Admin: 01/23/25 22:13 Dose: 4 mg Ticagrelor (Ticagrelor 90 Mg Tablet) 90 mg PO BID ANASTACIO Stop: 02/23/25 20:59 Discontinued Medications Hydrocodone Bitart/Acetaminophen (Hydrocodone/Apap 5/325 Tablet) 1 tab PO X1 ONE Stop: 01/23/25 12:24 Last Admin: 01/23/25 12:31 Dose: 1 tab Al Hydrox/Mg Hydrox/Simethicone (Mg Hyd/Al Hyd/Vanna (Maalox Reg) Susp 30 Ml Udc) 30 ml PO X1 ONE Stop: 01/23/25 13:10 Last Admin: 01/23/25 15:21 Dose: 30 ml Aspirin (Aspirin Ec 81 Mg Tabec) 81 mg PO QDAY ANASTACIO Stop: 02/23/25 08:59 Last Admin: 01/24/25 08:18 Dose: 81 mg Aspirin (Aspirin Ec 81 Mg Tabec) 243 mg PO X1 ONE Stop: 01/24/25 08:46 Last Admin: 01/24/25 08:46 Dose: 243 mg Famotidine (Famotidine Inj 10 Mg/Ml Vial 2 Ml) 20 mg IVP X1 ONE Stop: 01/23/25 13:10 Last Admin: 01/23/25 13:20 Dose: 20 mg Heparin Sodium (Porcine) (Heparin Sod Inj 5000 Unit/Ml Vial) 4,000 unit IV X1 ONE; Protocol Stop: 01/23/25 21:41 Last Admin: 01/23/25 23:25 Dose: 4,000 unit Heparin Sodium (Porcine) (Heparin Sod Inj 5000 Unit/Ml Vial) 2,000 unit IVP X1 ONE Stop: 01/24/25 06:30 Last Admin: 01/24/25 06:36 Dose: 2,000 unit Nitroglycerin/Dextrose (Nitroglycerin In D5w Ivpb) 50 mg in 250 mls @ 1.5 mls/hr IV .Q24H PRN; Protocol PRN Reason: PER PROTOCOL Stop: 02/22/25 15:58 Last Titration: 01/23/25 22:05 Dose: 0 mcg/min, 0 mls/hr Magnesium Sulfate (Magnesium Sulfate Ivpb) 4 gm in 50 mls @ 12.5 mls/hr IV X1 ONE Stop: 01/24/25 01:58 Last Admin: 01/24/25 09:45 Dose: 12.5 mls/hr Potassium Chloride (Kcl Ivpb) 10 meq in 100 mls @ 100 mls/hr IV Q1H ANASTACIO Stop: 01/24/25 10:25 Last Admin: 01/24/25 13:23 Dose: Not Given Labetalol HCl (Labetalol Inj 5 Mg/Ml Vial 20 Ml) 10 mg IVP Q6H PRN PRN Reason: Systolic >200/105 and HR >75 Stop: 02/22/25 21:43 Metoclopramide HCl (Metoclopramide Inj 5 Mg/Ml Vial 2 Ml) 10 mg IVP X1 ONE; Protocol Stop: 01/23/25 23:48 Last Admin: 01/24/25 00:19 Dose: 10 mg Morphine Sulfate (Morphine Sulf Inj 10 Mg/Ml Vial) 2 mg IVP Q30M PRN PRN Reason: CHEST PAIN Stop: 01/24/25 13:09 Last Admin: 01/23/25 17:10 Dose: 2 mg Morphine Sulfate (Morphine Sulf Inj 10 Mg/Ml Vial) 4 mg IVP X1 ONE Stop: 01/23/25 15:15 Last Admin: 01/23/25 15:21 Dose: 4 mg Morphine Sulfate (Morphine Sulf Inj 10 Mg/Ml Vial) 1 mg IVP Q6HR PRN PRN Reason: Pain 7-10 Stop: 01/28/25 21:44 Last Admin: 01/23/25 22:13 Dose: 1 mg Morphine Sulfate (Morphine Sulf Inj 10 Mg/Ml Vial) 1 mg IVP X1 ONE Stop: 01/23/25 22:53 Last Admin: 01/23/25 23:14 Dose: 1 mg Nitroglycerin (Nitroglycerin Oint 2% 1 Inch Packet) 1 inch TOP X1 ONE Stop: 01/23/25 13:16 Last Admin: 01/23/25 13:27 Dose: 1 inch Ondansetron HCl (Ondansetron Inj 2 Mg/Ml Inj 2 Ml) 4 mg IVP X1 ONE; Protocol Stop: 01/23/25 13:11 Last Admin: 01/23/25 13:21 Dose: 4 mg Potassium Chloride (Potassium Chloride 20 Meq Tabcr) 40 meq PO X1 ONE Stop: 01/23/25 22:00 Last Admin: 01/24/25 00:30 Dose: Not Given Potassium Chloride (Potassium Chloride 20 Meq Tabcr) 40 meq PO X1 ONE Stop: 01/24/25 09:05 Last Admin: 01/24/25 09:39 Dose: 40 meq Assessment & Plan Plan Assessment and plan: Summary: Ms. Alonso is a 74-year-old female with past medical history of coronary artery disease status post stent placement x 4 (last one in 2018 and first 1 in 1993), hypertension, hyperlipidemia, neuropathy and marijuana use disorder presenting to the ED on 01/23 with acute chest pain. Patient found to have NSTEMI type I, underwent angioplasty in [facility]iac [facility] 01/24, 2 stents placed in LAD and patient upgraded to intensive care unit for Integrilin drip and close monitoring. Neurological #Marijuana use disorder Patient apparently smokes marijuana daily Plan: Consider social service consultation Orthopedic Physician Assistant on cessation Cardiology #ACS: NSTEMI type I #Status post angioplasty and stent placement 01/24 #History of coronary artery disease, status post 4 stents placed ASCVD risk score 37.4% Risk of cardiovascular event (coronary or stroke or non-fatal MN or stroke) in next 10 years. Patient is presenting with typical chest pain progressive located in the substernal region started 2 weeks ago however today is severe 10/10 with radiation to the back, associated with diaphoresis and nausea. Patient has significant history of coronary artery disease, follows Dr. Ness last stent placed in 2019 Patient has not follow-up with Dr. Ness for about 3 months Operative note from 2019 shows 100% occlusion of the long segment of the proximal to mid right coronary artery, previously stented long segment of the mid left anterior descending Troponin initially 0.059 -->6.739. BNP of 151 EKG shows sinus rhythm with possible ST changes noted in V1?V3 and reciprocal changes in leads I CTA shows heavy calcification of the LAD, mild enlargement of the left atrium and left ventricle, 8 mm liver cyst and PAH pattern noted 01/24-patient was taken to cardiac [facility] today, had 2 stents placed in LAD. Started on Integrilin drip. Plan: Continue Integrilin drip Hold heparin drip Continue aspirin 81 mg daily, Brilinta 90 mg twice daily 40 mg atorvastatin Carvedilol 6.25 p.o. twice daily Cardiology consulted, appreciate recommendations Pending echocardiogram Will keep magnesium greater than 2 and potassium greater than 4 Telemetry monitoring Monitor closely in ICU for chest pain #Hypertensive emergency #PAH #Hypertension #Hyperlipidemia Patient is on home losartan 100 and amlodipine 5 Hypertensive emergency with a blood pressure of 213/92, heart rate of 75 with some bouts of tachycardia is high as 102 Currently blood pressure is 156/80 Lipid panel: Triglyceride 87, cholesterol 152, LDL 85, HDL 50 Plan: Continue Coreg 6.25 mg twice daily As needed IV labetalol 10 mg every 6 hours if blood pressure is above 185/105 Continue 40 mg atorvastatin Pulmonary No active problems, stable on room air. Gastrointestinal #Transaminitis, elevated AST Likely in setting of elevated troponin, ACS - Follow LFTs in a.m. #8mm Liver cyst Incidental finding on CT imaging Plan: Follow-up outpatient Renal/Genitourinary No active problems. Endocrine A1c 5.7. No active problems. Hematology #Leukocytosis Differentials include likely reactive process secondary to acutely ill status versus underlying infection Patient denies having any concerning symptoms such as cough/shortness of breath, dysuria Chest x-ray shows no active disease in chest U/a was negative for any signs of infection Plan: Treat primary problem Continue to monitor with morning labs Infectious Disease #Asymptomatic bacteriuria Denies any symptoms of UTI, UA is contaminated, squamous epithelial cells more than 15, will monitor Integumentary #MS? #Neuropathy Patient states that she has been diagnosed with MS in the past but she is currently not taking any medications On examination, patient has reduced sensation in the right lower extremity, foot Denies having any history of diabetes Plan: Follow-up with outpatient PCP #Left hip musculoskeletal disorder Apparently in 2019, patient had a fall on her left hip and she has been having pain in the region Patient's PCP Dr. Erazo has done imaging studies which were negative for any fracture Plan: Pain management when appropriate DVT prophylaxis: Was on heparin drip, discontinued 01/24, status post PCI will hold overnight GI prophylaxis: IV Protonix Diet: Cardiac diet Lines: Peripheral IV Code status: Full code Disposition: Intensive care unit for Integrilin drip and close observation. Case discussed with Attending Health Information Systems Technician Dr. Rushing. Corey Rico MD Internal Medicine PGY-2 Disclaimer: This note was dictated by speech recognition. Minor errors in porcelain enameler may be present due to voice recognition software. Attending Provider Attestation/Addendum Patient not seen on date of service. I was contacted by the resident about admission to the ICU. ICU placement requested by cardiology for non-STEMI in the setting of complicated PCI requiring post cath Integrilin for maintenance of coronary vasculature. Patient remains hemodynamically stable and will monitor closely for arrhythmia bleeding while on Integrilin gtt. will defer ongoing optimization to cardiology who had been working with the patient throughout the day. I remain available overnight in case any issues to arise. Will formally see the patient tomorrow during rounds with the resident staff.
[2025-01-24] MEDS: SODIUM CHLORIDE 0.9% 500 ML 500 ML 100 ML IV (19:03)
[2025-01-24] MEDS: ATORVASTATIN CALCIUM 20 MG TABLET 40 MG PO (22:39)
[2025-01-24] MEDS: TICAGRELOR 90 MG TABLET PO (22:40)
[2025-01-25] VITALS: PULSE 68
[2025-01-25] MEDS: MORPHINE SULF INJ 10 MG/ML VIAL IVP ×2 (02:53→07:02)
[2025-01-25 04:00] VITALS: PULSE 76
[2025-01-25 05:34] LABS: Basophils # (Auto) 0.1 Thou/mm3 (0.0-0.2); Basophils % (Auto) 1 % (0-2.5); Eosinophils # (Auto) 0.2 Thou/mm3 (0.0-0.5); Eosinophils % (Auto) 2 % (0-10); Hematocrit 38.9 % (36.0-46.0); Hemoglobin 13.4 g/dL (12.0-16.0); Immature Granulocytes Auto 0.04 Thou/mm3 (0.00-0.00); Lymphocytes # (Auto) 1.6 Thou/mm3 (1.0-4.8); Lymphocytes % (Auto) 14 % (10-50); Mean Corpuscular HGB Conc 34.4 g/dl (31.0-37.0); Mean Corpuscular Hemoglobin 31.6 pg (25.0-35.0); Mean Corpuscular Volume 92 fL (80-100); Monocytes # (Auto) 0.9 Thou/mm3 (0.0-0.8); Monocytes % (Auto) 9 % (0-12); Neutrophils # (Auto) 8.0 Thou/mm3 (1.8-7.7); Neutrophils % (Auto) 74 % (37-80); Nucleated Red Blood Cell # 0.00 Thou/mm3 (0.00-0.00); Nucleated Red Blood Cell % 0 /100 WBC (0); Platelet Count 314 Thou/mm3 (140-440); RDW Standard Deviation 47.8 fL (36.4-46.3); Red Blood Count 4.24 Miln/mm3 (4.00-5.20); White Blood Count 10.8 Thou/mm3 (3.6-11.0)
[2025-01-25 05:55] LABS: INR 1.0 (0.9-1.3); Partial Thromboplastin Time 28.0 Seconds (22.0-36.0); Prothrombin Time 10.9 Seconds (9.0-12.2)
[2025-01-25 06:00] VITALS: BMI 29.7
[2025-01-25 06:09] LABS: Alanine Aminotransferase 14 U/L (10-49); Albumin, Serum 3.9 gm/dL (3.4-4.8); Albumin/Globulin Ratio 1.5 (1.2-2.2); Alkaline Phosphatase 94 U/L (46-116); Anion Gap 8 (7-16); Aspartate Amino Transferase 55 U/L (0-34); BUN/Creatinine Ratio 10 Ratio (12-20); Bilirubin,Total 1.2 mg/dL (0.3-1.2); Blood Urea Nitrogen 8 mg/dL (9-23); Calcium 9.0 mg/dL (8.3-10.6); Calcium (Corrected) 9.1 mg/dL (8.5-10.1); Carbon Dioxide 27.3 mMol/L (20.0-31.0); Chloride 105 mMol/L (98-107); Creatinine (Component) 0.8 mg/dL (0.6-1.3); Estimated Creatinine Clearance 59.4 mL/min (>60); Globulin 2.6 gm/dL (2.3-3.5); Glucose 107 mg/dL (74-106); Magnesium 2.0 mg/dL (1.6-2.6); Osmolality,Calculated 277 (275-295); Potassium 3.8 mMol/L (3.4-5.1); Sodium 140 mMol/L (136-145); Total Protein 6.5 gm/dL (5.7-8.2); eGFR > 60 See Note
[2025-01-25 07:26] VITALS: BP 124/68; PULSE 75
[2025-01-25] MEDS: Magnesium Sulfate 2 GM Ivpb 2 GM/50 ML BAG IV (07:27)
[2025-01-25 08:00] VITALS: PULSE 77
[2025-01-25] MEDS: TICAGRELOR 90 MG TABLET PO (09:20)
[2025-01-25] MEDS: ASPIRIN EC 81 MG TABEC PO (09:20)
--- NOTE | 2025-01-25 10:18 | PD.RESPRO ---
Documentation for date of: 01/25/25 Subjective Subjective Interval history: Ms. Alonso is a 74-year-old female with past medical history of coronary artery disease status post stent placement x 4 (last one in 2018 and first 1 in 1993), hypertension, hyperlipidemia, neuropathy and marijuana use disorder presenting to the ED on 01/23 with acute chest pain. Patient states that the pain is substernal region and feels like a stabbing sensation that radiates to her back (right shoulder) with no radiation to her jaw or upper extremities. Patient reported that the uncomfortable sensation in her chest started about 2 weeks ago, has been progressing since then and over the weekend became uncontrollably worse, patient also reported diaphoresis at home along with some nausea and vomiting in the emergency department. Patient's pain does not subside with deep inspiration and she feels slightly better when she is sitting upright. Of note, patient follows up with [employer] Dr. Ness and her last appointment was about 3 months ago; moreover, she was scheduled for another appointment for reassessment and imaging. Patient denies having any history of heart failure and denies having any orthopnea, paroxysmal nocturnal dyspnea, lower extremity edema or cough. In the ED, patient presented in hypertensive emergency with a blood pressure of 213/92, heart rate of 75 with some bouts of tachycardia is high as 102, respiratory rate within normal limits, afebrile satting 98 but currently 90 on room air. Pertinent lab findings in ED included WBC of 16.2, hemoglobin 13.3, potassium 3.8, creatinine 1.0, BUN 12, EGFR 59, magnesium 1.7, troponin initially 0.059 has uptrend to 0.180 and is currently 2.037. BNP of 151, urinalysis shows no signs of infection. EKG shows sinus rhythm with possible ST changes noted in V1?V3 and reciprocal changes in leads I. Chest x-ray shows no active disease in chest CTA shows heavy calcification of the LAD, mild enlargement of the left atrium and left ventricle, 8 mm liver cyst and PAH pattern noted Patient will be admitted to telemetry for NSTEMI type I on heparin drip with cardiology consulted for possible left heart cath. 01/24/2025: Patient seen and examined at bedside in cardiac [facility], patient was admitted overnight, taken to cardiac [facility] today. In [facility] patient found to have multivessel disease, underwent angioplasty and stent placement in LAD, 2 stents were placed in LAD by [employer]. Considering patient has multivessel disease, cardiology recommends Integrilin drip overnight, patient will be observed closely in ICU overnight for any chest pain will reach out to [employer] as needed. Otherwise patient at bedside reports active history of smoking in the past and current heavy marijuana use daily, patient informed to abstain from marijuana use. Patient's access site on right radial looks stable, no hematoma, dressing intact. Otherwise we will continue Brilinta and aspirin. Patient is on Coreg 6.25 mg daily, pending echocardiogram. 01/25/2025: Patient seen and examined at bedside, has no current complaints, received Integrilin drip for total of 16 hours, confirmed with pharmacy. Patient overnight had no arrhythmias or significant chest pain, patient is stable tolerating diet well currently on aspirin and Brilinta, tolerating Coreg well blood pressures within normal limits. No TIFF noted postcontrast, continue to monitor kidney function for another 24 hours to rule out any ADIEL. Per cardiology patient might undergo cardiac catheterization again on , cardiology is following patient closely. Patient is stable to be downgraded to telemetry today, no acute events in ICU hospitalist team to resume care of patient, will be downgraded to primary hospitalist team B. Exam Vital Signs Temp Pulse Resp BP Pulse Ox O2 Del Method 97.1 F 75 11 L 124/68 98 Room Air 01/24/25 17:15 01/25/25 07:26 01/24/25 20:30 01/25/25 07:26 01/24/25 20:30 01/24/25 20:30 Narrative Exam Physical Exam: GENERAL: Awake, answering questions appropriately, appears stated age, in [facility]. HEENT: NC/AT. Moist mucosa. PERRLA/EOMI. CARDIO: Heart RRR, no obvious murmurs, no JVD. PULM: No coughing or visible SOB. Lungs CTA B/L. GI: Abdomen soft, NT/ND, +BS. SKIN/MSK/EXT: Tenderness elicited on left hip. No wounds/discoloration/rashes/edema/amputations. +Pedal pulses present B/L. Right radial access site, appropriate dressing intact. NEURO: Alert & Oriented x3, Moves extremities x4, decreased sensation to pinprick and vibration on right foot but motor strength 5 out of 5 on bilateral lower extremities, no focal neurologic deficits noted Objective Labs 01/25/25 04:32 01/25/25 04:32 Labs: Laboratory Results - last 24 hr 01/24/25 01/25/25 13:05 04:32 WBC 10.8 D RBC 4.24 Hgb 13.4 Hct 38.9 MCV 92 MCH 31.6 MCHC 34.4 RDW Std Deviation 47.8 H Plt Count 314 D Neut % (Auto) 74 Lymph % (Auto) 14 [place] % (Auto) 9 Eos % (Auto) 2 Baso % (Auto) 1 Neut # (Auto) 8.0 H Lymph # (Auto) 1.6 [place] # (Auto) 0.9 H Eos # (Auto) 0.2 Baso # (Auto) 0.1 Immature Gran # (Auto) 0.04 H Absolute Nucleated RBC 0.00 Immature Gran % 0 Nucleated RBC % 0 PT 10.9 INR 1.0 APTT 53.6 H 28.0 D Sodium 140 Potassium 3.8 Chloride 105 Carbon Dioxide 27.3 Anion Gap 8 BUN 8 L Creatinine 0.8 Estim Creat Clear Calc 59.4 L eGFR > 60 BUN/Creatinine Ratio 10 L Glucose 107 H Calculated Osmolality 277 Calcium 9.0 Corrected Calcium 9.1 Magnesium 2.0 Total Bilirubin 1.2 D AST 55 H ALT 14 Alkaline Phosphatase 94 Troponin I 6.739 H* D Total Protein 6.5 Albumin 3.9 D Globulin 2.6 Albumin/Globulin Ratio 1.5 Quality Measures Quality Measures none Advance care planning discussed with:: patient Assessment & Plan Assessment Current Active Medications: Generic Name Dose Route Start Last Admin Trade Name Hilary PRN Reason Stop Dose Admin Acetaminophen 650 mg 01/23/25 20:02 Acetaminophen 325 Mg Tablet PO 02/22/25 20:01 Q6H PRN PAIN SCALE 1-3 (mild Aspirin 81 mg 01/25/25 09:00 01/25/25 09:20 Aspirin Ec 81 Mg Tabec PO 02/24/25 08:59 81 mg QDAY ANASTACIO Administration Atorvastatin Calcium 40 mg 01/23/25 21:45 01/24/25 22:39 Atorvastatin Calcium 20 Mg Tablet PO 02/22/25 21:44 40 mg HS ANASTACIO Administration Carvedilol 6.25 mg 01/24/25 08:00 01/25/25 07:26 Carvedilol 3.125 Mg Tablet PO 02/23/25 07:59 6.25 mg BIDWM ANASTACIO Administration Heparin Sodium/Dextrose 25,000 unit in 250 mls @ 9.096 mls/hr 01/23/25 21:45 01/24/25 06:37 Heparin In D5w Ivpb IV 02/06/25 21:44 14 units/kg/hr .Q24H ANASTACIO 10.612 mls/hr Titration Protocol 12 UNITS/KG/HR Labetalol HCl 10 mg 01/23/25 22:26 Labetalol Inj 5 Mg/Ml Vial 20 Ml IVP 02/22/25 21:43 Q6H PRN Systolic >185/105 and HR >75 Morphine Sulfate 1 mg 01/24/25 03:54 01/25/25 07:02 Morphine Sulf Inj 10 Mg/Ml Vial IVP 01/28/25 21:44 1 mg Q4HR PRN Administration Pain 7-10 Ondansetron HCl 4 mg 01/23/25 20:02 01/23/25 22:13 Ondansetron Inj 2 Mg/Ml Inj 2 Ml IVP 02/22/25 20:01 4 mg Q6H PRN Administration NAUSEA OR VOMITING Protocol Pantoprazole Sodium 40 mg 01/25/25 09:00 01/25/25 09:19 Pantoprazole Inj 40 Mg Vial IVP 02/24/25 08:59 40 mg QDAY ANASTACIO Administration Ticagrelor 90 mg 01/24/25 21:00 01/25/25 09:20 Ticagrelor 90 Mg Tablet PO 02/23/25 20:59 90 mg BID ANASTACIO Administration Plan Assessment and plan: Summary: Ms. Alonso is a 74-year-old female with past medical history of coronary artery disease status post stent placement x 4 (last one in 2018 and first 1 in 1993), hypertension, hyperlipidemia, neuropathy and marijuana use disorder presenting to the ED on 01/23 with acute chest pain. Patient found to have NSTEMI type I, underwent angioplasty in [facility] 01/24, 2 stents placed in LAD and patient upgraded to intensive care unit for Integrilin drip and close monitoring. Neurological #Marijuana use disorder Patient apparently smokes marijuana daily Plan: Social service consult Counselled on cessation Cardiology #ACS: NSTEMI type I #Status post angioplasty and stent placement 01/24 #History of coronary artery disease, status post 4 stents placed ASCVD risk score 37.4% Risk of cardiovascular event (coronary or stroke or non-fatal MN or stroke) in next 10 years. Patient is presenting with typical chest pain progressive located in the substernal region started 2 weeks ago however today is severe 10/10 with radiation to the back, associated with diaphoresis and nausea. Patient has significant history of coronary artery disease, follows Dr. Ness last stent placed in 2019 Patient has not follow-up with Dr. Ness for about 3 months Operative note from 2019 shows 100% occlusion of the long segment of the proximal to mid right coronary artery, previously stented long segment of the mid left anterior descending Troponin initially 0.059 -->6.739. BNP of 151 EKG shows sinus rhythm with possible ST changes noted in V1?V3 and reciprocal changes in leads I CTA shows heavy calcification of the LAD, mild enlargement of the left atrium and left ventricle, 8 mm liver cyst and PAH pattern noted 01/24-patient was taken to cardiac [facility] today, had 2 stents placed in LAD. Started on Integrilin drip. Plan: Received Integrilin drip for 16 hours, confirmed with pharmacy Hold heparin drip Continue aspirin 81 mg daily, Brilinta 90 mg twice daily 40 mg atorvastatin Carvedilol 6.25 p.o. twice daily Cardiology consulted, appreciate recommendations Pending echocardiogram Will keep magnesium greater than 2 and potassium greater than 4 Telemetry monitoring, downgraded to telemetry floor #Hypertensive emergency #PAH #Hypertension #Hyperlipidemia Patient is on home losartan 100 and amlodipine 5 Hypertensive emergency with a blood pressure of 213/92, heart rate of 75 with some bouts of tachycardia is high as 102 Currently blood pressure is 156/80 Lipid panel: Triglyceride 87, cholesterol 152, LDL 85, HDL 50 Plan: Continue Coreg 6.25 mg twice daily As needed IV labetalol 10 mg every 6 hours if blood pressure is above 185/105 Continue 40 mg atorvastatin Pulmonary No active problems, stable on room air. Gastrointestinal #Transaminitis, elevated AST Likely in setting of elevated troponin, ACS - Follow LFTs in a.m. #8mm Liver cyst Incidental finding on CT imaging Plan: Follow-up outpatient Renal/Genitourinary No active problems. Endocrine A1c 5.7. No active problems. Hematology #Leukocytosis, resolved Differentials include likely reactive process secondary to acutely ill status versus underlying infection Patient denies having any concerning symptoms such as cough/shortness of breath, dysuria Chest x-ray shows no active disease in chest U/a was negative for any signs of infection Plan: Continue to monitor with morning labs Infectious Disease #Asymptomatic bacteriuria Denies any symptoms of UTI, UA is contaminated, squamous epithelial cells more than 15, will monitor Integumentary #MS? #Neuropathy Patient states that she has been diagnosed with MS in the past but she is currently not taking any medications On examination, patient has reduced sensation in the right lower extremity, foot Denies having any history of diabetes Plan: Follow-up with outpatient PCP #Left hip musculoskeletal disorder Apparently in 2019, patient had a fall on her left hip and she has been having pain in the region Patient's PCP Dr. Erazo has done imaging studies which were negative for any fracture Plan: Pain management when appropriate DVT prophylaxis: Was on heparin drip, discontinued 01/24, status post PCI will hold for now GI prophylaxis: IV Protonix Diet: Cardiac diet Lines: Peripheral IV Code status: Full code Disposition: Downgraded to telemetry. Case discussed with Attending Emergency Telecommunications Dispatcher Dr. Rushing. oCrey Rico MD Internal Medicine PGY-2 Disclaimer: This note was dictated by speech recognition. Minor errors in mac operator may be present due to voice recognition software. Attending Provider Attestation/Addendum Patient seen and examined with above resident, Corey Rico MD. I agree with the findings, assessment, and plan of care as documented except for any differences below. Patient post emergent cath with complicated coronary vasculature with difficult intervention. Patient admitted to ICU for ongoing use of Integrilin drip post procedure. Completed infusion course no evidence of bleeding or blood loss. She remains hemodynamically stable and is doing well at this time. Patient without any acute complaints of chest pain. Patient remains stable for transfer to medicine [place] for completion of inpatient workup prior to her discharge. Cardiology is primarily managing and remain available in case there is any issues should they arise. Total critical care time: I personally spent 35 minutes for review of physiologic parameters, directing plan of care, coordination of care with other subspecialist/specialist, and counseling patient at bedside. This is exclusive of time spent teaching of staff performing any separate billable procedures. Patient remains at significant risk for further morbidity and mortality warranting close monitoring care only available in the ICU. Critical care services required for non-ST elevation MN/severe CAD, hypertension, and hyperlipidemia.
--- NOTE | 2025-01-25 11:47 | PC.NURSE ---
Hand off report given to Fatuma BRAR
[2025-01-25 12:00] VITALS: PULSE 73
[2025-01-25 14:16] VITALS: BMI 13.0
--- NOTE | 2025-01-25 14:39 | ESDS_ITS ---
Planned Discharge Date 01/25/25 DS: Providers Provider Date of admission: 01/23/25 20:01 Primary care physician: SARAVANAN King Admitting Provider: Ashutosh Stevens MD Attending Provider on Admission: Ashutsoh Stevens MD Consults: 01/23/25 19:47 Consult to Cardiology Stat Comment: Consulting Provider: Saturnino Lama 01/25/25 07:25 Referral Physical Therapy Routine Comment: Physician Instructions: Attending Provider on DC: Jasbir Hansen Discharging Provider: Jasbir Hansen Anticipated date of discharge: 01/25/25 DS: Diagnosis Problem List Completed Was Problem List Reviewed/Reconciled?: Yes Hospital Course Hospital Course Hospital course: Summary: Patient is a 74 year old female with significant past medical history of CAD multi-vessel disease s/p x6 (01/24/2025), HTN, HLD, and right lower extremity neuropathy who presented to the ED 01/23 with two days of substernal pain worsening over the previous two days and was admitted for acute coronary syndrome, subsequently found to have NSTEMI type I, after Left cardiac catheterization PCI, multivessel disease X 6 stents (01/24/2025). Continue Brilinta and Aspirin for at least 1 year. Follow up with cardiology on Thursday. ED Course: Patient presented to the ED 01/23 with chief complaint of worsening substernal chest over the previous two days. Patient rated the pain 5/10. Patient stated that the pain radiated to her back, but did not radiate to her jaw or upper extremities. Patient endorsed associated symptoms of nausea, vomiting, and diaphoresis. EKG demonstrated likely S-T changes in leads V1-V3. CXR demonstrated normal findings. CTA chest demonstrated heavy calcification of the left anterior descending coronary artery, possible pulmonary hypertension, and 8 mm hepatic cyst. Pertinent labs include: WBC 16.2 BUN 12 Cr 1.0 GFR 59 glucose 174 BNP 151 trop uptrending from 0.059 to 0.18. Treatment provided includes: Nitroglycerin 50 mg 10 mcg/min x2 5 mcg/min x1, [place] 5 1 tablet x1, Morphine 2 mg IV x3 Morphine 4 mg IV x1 Nitropacket x1 for chest pain, Zofran 4 mg IV x1 for nausea, and Maalox 30 ml x1 for GI prophylaxis. Hospital Course: Patient was admitted overnight 01/23 for Acute Coronary Syndrome, likely NSTEMI type I. Patient continued to endorse chest discomfort that radiated to her back and musculoskeletal pain that spread along her ribs. Patient continued to deny radiation of chest discomfort to jaw or upper extremities. Patient was given Aspirin 243 mg x1 at the time of admission. Cardiology consulted, Dr. Lama and recommendation made for left heart catheterization, which was completed 01/24. Left heart catheterization demonstrated 80% stenosis of the proximal and mid LAD, severe 100% thrombotic occlusion caused by in-stent restenosis of mid LAD, 80-90% stenosis of the medium to large proximal OM2 of LCx artery, and a lesion in the proximal RCA that receives collaterals to the PDA and PL from the left side and elevated right to left collaterals to the right ventricle marginal branch. A 3.0 x 28 mm X[place] FRANK was placed in the ostium of the LAD and a 2.5 x 22 mm [place] FRANK was placed in the mid LAD, overlapping with proximal LAD. All occlusion was resolved with the completion of this procedure. Per cardiology recommendation, patient was upgraded to ICU post-procedure and placed on In tegrillin 75 mg drip for 12 additional hours, originally administered at 1623 01/24. Pertinent labs include: WBC 10.8 BUN 8 Cr 0.8 glucose 107 AST 55 TG 87 TC 152 LDL 85 HDL 50 trop uptrending from 0.18 on admission to 6.739 at time of procedure. Treatment provided includes: Heparin drip Aspirin 81 mg PO QD Coreg 6.25 mg PO BID Atorvastatin 40 mg PO QHS Brillinta 90 mg PO BID as per NSTEMI type 1 protocol, Morphine 1 mg IVP Q4HR for pain, and IV Protonix 40 mg QD for GI prophylaxis. Patient was downgraded from ICU back to med-telemetry unit 01/25. Per cardiology recommendation, Dr. Lama, patient is cleared for discharge, as patient denied chest pain post-procedure. Per cardiology recommendation, patient is to remain on Aspirin 81 mg PO QD lifetime and Brillinta 90 mg PO BID for at last one year. In addition, patient is recommended to continue Coreg 6.25 mg PO BID and Atorvastatin 40 mg PO QHS as tolerated given history of significant cardiac disease as per cardiology recommendation. Per cardiology recommendation, patient is to discontinue Celecoxib, Plavix, and Metoprolol tartrate due to prescription of more suitable alternative medications. Patient was counseled on weight loss and ceasing marijuana use completely. Patient is stable and progressing back to baseline. Instructions: Recommend discontinue celecoxib, Plavix, lisinopril and metoprolol tartrate you have been prescribed alternate medications per turntable engineer recommendation. Recommend to take aspirin 81 mg lifelong and Brilinta 90 mg twice daily for at least a year. Follow-up with turntable engineer Dr. Daina Juarez on Thursday with labs, you will need to get a renal panel and CBC on Thursday. Recommend to stop taking marijuana completely. Patient recommended not to lift any weight more than 5 to 10 pounds for the next 7 days. Please do not lift your arm more than shoulder height. In case of worsening symptoms, please return to the emergency room. #Coronary Artery Disease s/p stents x6 (01/24/25) #Multi-vessel disease, including LAD, RCA, and LCx #Acute Coronary Syndrome, likely NSTEMI #Troponemia #NSTEMI, likely Type 1 #Chest Pain #Hypertensive Emergency, resolved #Hypertension #Hyperlipidemia #Reactive Leukocytosis, improved #Possible Congestive Heart Failure #Possible Pulmonary Arterial Hypertension #Mild Transaminitis #Incidental Hepatic Cyst #Right Lower Extremity Neuropathy #Thoracic Musculoskeletal Pain Case reviewed with attending Dr. Brown and senior resident Dr. Sanchez. Lashonda Joshuahiral MS-4 - Case discussed with attending Dr. Kevin Sanchez MD PGY-2 Internal Medicine Time Spent with Patient Time attestation: Total time spent providing and/or coordinating discharge services: Time spent: Greater than 30 minutes Exam Vital Signs Temp Pulse Resp BP Pulse Ox O2 Del Method 97.1 F 73 11 L 124/68 98 Room Air 01/24/25 17:15 01/25/25 12:00 01/24/25 20:30 01/25/25 07:26 01/24/25 20:30 01/24/25 20:30 Narrative Exam General Appearance: Alert & Oriented to person, place, time, and condition;well- nourished female who is lying in bed in no acute distress. HEENT: Skull symmetrical and atraumatic. Conjunctivae pink and moist. Pupils equal, round, reactive to light and accommodation (PERRL). External ear without lesion or discharge. Straight, nares patient, mucosa pink, no discharge. No thyroid nodule appreciated. No cervical lymphadenopathy. Cardio: Normal Rate and Rhythm with S1 and S2 heart sounds. No murmurs or extra heart sounds auscultated. No bruits on carotid auscultation. No peripheral edema or cyanosis. Lungs: Symmetric with good expansion. Chest and back non-tender. Breath sounds vesicular without crackles, wheezing or rhonchi Abdomen: Non-tender, Non-distended, Normal Reactive Bowel Sounds Neuro: Alert, cooperative, oriented to person, place, and time, and condition. Speech clear. CN grossly intact. Upper motor strength 5/5 and Lower motor s trength 5/5. Diminished sensation right lower extremity. Discharge Plan Plan Patient Disposition: HOME (Self Care) Patient condition on transfer: Stable Care Plan Goals: Recommend discontinue celecoxib, Plavix, lisinopril and metoprolol tartrate you have been prescribed alternate medications per turntable engineer recommendation. Recommend to take aspirin 81 mg lifelong and Brilinta 90 mg twice daily for at least a year. Follow-up with turntable engineer Dr. Daina Juarez on Thursday with labs, you will n eed to get a renal panel and CBC on Thursday. Recommend to stop taking marijuana completely. Patient recommended not to lift any weight more than 5 to 10 pounds for the next 7 days. Please do not lift your arm more than shoulder height. In case of worsening symptoms, please return to the emergency room. Prescriptions/Referrals Prescriptions/Med Rec: New atorvastatin 40 mg tablet 40 mg PO HS 30 Days Qty: 30 0RF ticagrelor [Brilinta] 90 mg Tablet 90 mg PO BID 30 Days Qty: 60 0RF carvedilol 6.25 mg tablet 6.25 mg PO BIDWM 30 Days Qty: 60 0RF Continued ezetimibe [Zetia] 10 MG tablet 10 mg PO QDAY Qty: 0 aspirin 81 MG tablet,chewable 81 mg PO QDAY Qty: 0 nitroglycerin [Nitrostat] 0.4 MG tablet, sublingual 0.4 mg SL Q5MIN PRN (Reason: CHEST PAIN) Qty: 5 0RF hydrocodone-acetaminophen [[place]] 7.5-325 mg Tablet 1 tab PO Q6H PRN (Reason: Pain) pantoprazole 40 mg Tablet,Delayed Release (Dr/Ec) 40 mg PO QDAY Qty: 30 0RF gabapentin 100 mg Capsule 200 mg PO TID Qty: 90 0RF amlodipine 5 mg tablet 5 mg PO DAILY Patient Comments: TAKE ONE TABLET BY MOUTH EVERY DAY FOR BLOOD PRESSURE losartan 100 mg tablet 100 mg PO DAILY Patient Comments: TAKE ONE TABLET BY MOUTH EVERY DAY FOR BLOOD PRESSURE Discontinued clopidogrel [Plavix] 75 MG tablet 75 mg PO QDAY Qty: 0 celecoxib 200 mg Capsule 200 mg PO QDAY atorvastatin 20 mg Tablet 40 mg PO HS Qty: 30 0RF lisinopril 20 mg Tablet 40 mg PO QDAY Qty: 30 0RF metoprolol tartrate 25 mg Tablet 25 mg PO BID Qty: 60 0RF Referrals: Saturnino Lama MD [Physician] - Griffin Up FNP [Primary Care Provider] - Outpatient Orders (i.e. Home Health, Labs, Imaging): CBC (Routine) Location: None Selected Ordered By: Giana Owusu Renal Function Panel (Routine) Location: None Selected Ordered By: Giana Owusu Patient/Caregiver Discharge Instructions Education Materials: Cardiac Catheterization Dc Print Language: Citizen Of [place] Stand Alone Forms: Inez Award Info., Patient Portal Info Letter Discharge Order Discharge Orders: Discharge (Routine); Ordered 01/25/25 Ordered By: Giana Owusu Quality Discharge Quality Measures VTE prophylaxis Attestestation MD Attestation I have examined the patient, reviewed labs and imaging findings, discussed the case with the resident(s), and reviewed entered orders. I agree with the plan of care as outlined in this note. Time Spent: [address] Kevin MD
[2025-01-25 16:00] VITALS: PULSE 70
[2025-01-25] MEDS: HYDROcodone/APAP 5/325 TABLET 1 TAB PO (16:18)
--- NOTE | 2025-01-25 16:18 | PC.SS ---
Update: Plan is for the patient to discharge home today.
--- NOTE | 2025-01-25 17:26 | PC.NURSE ---
at 1501, pt received discharge orders, dr. sanchez notified of pt 5/10 left rib pain, also made aware of pt chest pain at 0700, pt would like to speak to air launch weapons technician Dr. Melissa Juarez, but pt does not want to wait for MD, Dr Sanchez and Dr. Owusu at bedside, norco given for pain, discharge instructions completed with patient and nephew at bedside, all questions answered and follow up appointments with air launch weapons technician and pcp verified, all medications reviewed as well as next admin times with patient understanding as well at right wrist dressing to remove at 01/26/25 1600 ,IVs x2 removed with hemostasis acheived, all belongings gathered with patient agreeable, pt AOX4, in stable condition at discharge, transported via wc to car
== END 2025-01-25 16:46 | disposition home or self-care (01) | DRG 322 ==
LOC: SERX 19:49 → SERHOLD 20:37 → S2NX 22:29 → S2SX 01-25 09:30
PROVIDERS: Emergency Medicine; Internal Medicine Cardiovascular Disease; Nurse Practitioner Family; Student in an Organized Health Care Education/Training Program; Admitting Provider Internal Medicine; Emergency Provider Emergency Medicine; PCP Nurse Practitioner Family; Visit Provider Internal Medicine
DX: I21.4 Non-ST elevation (NSTEMI) myocardial infarction (principal); I16.1 Hypertensive emergency; T82.855A Stenosis of coronary artery stent, initial encounter; E78.5 Hyperlipidemia, unspecified; J44.9 Chronic obstructive pulmonary disease, unspecified; I25.10 Atherosclerotic heart disease of native coronary artery without angina pectoris; Z95.5 Presence of coronary angioplasty implant and graft; K21.9 Gastro-esophageal reflux disease without esophagitis; I25.2 Old myocardial infarction; H91.90 Unspecified hearing loss, unspecified ear; Z87.891 Personal history of nicotine dependence; G62.9 Polyneuropathy, unspecified; D72.829 Elevated white blood cell count, unspecified; K76.89 Other specified diseases of liver; F12.10 Cannabis abuse, uncomplicated; Y83.1 Surgical operation with implant of artificial internal device as the cause of abnormal reaction of the patient, or of later complication, without mention of misadventure at the time of the procedure; I27.21 Secondary pulmonary arterial hypertension; G57.91 Unspecified mononeuropathy of right lower limb; Z79.01 Long term (current) use of anticoagulants; Z79.02 Long term (current) use of antithrombotics/antiplatelets; Z79.82 Long term (current) use of aspirin; Z79.899 Other long term (current) drug therapy; M79.18 Myalgia, other site
CPT/HCPCS: 36415; 71046; 71275; 80053; 80061; 81001; 83036; 83735; 83880; 84443; 84484; 85025; 85347; 85610; 85730; 93005; 94762; 96365; 96366; 96375; 96376; 97161; 99152; 99153; 99285; A4649; C1725; C1769; C1874; C1887; C1894; J0461; J1327; J1643; J1644; J2250; J2270; J2310; J2371; J2405; J2470; J2765; J3010; J3475; J3480; J3490; J7999; Q9967; A9270; J2305

== ENCOUNTER → 2025-02-02 | Outpatient (CLI) | payer MEDICARE, MEDICAID, SELFPAY ==
--- NOTE | 2025-02-02 09:30 | XR_ITS ---
Examination: CT pelvis, without contrast. CT left hip without intravenous contrast 2-D sagittal reconstructions. 2-D coronal reconstructions. 3-D reconstructions. Date and time of exam:February 02, 2025 0931 hours INDICATIONS: Left hip pain 6 years, diagnosis left hip avascular necrosis CTDI: vol (mGy):9.26 DLP: (mGycm):328 Technique: Multiple 1.25 mm axial sections of the pelvis left hip have been obtained. 2-D sagittal and coronal reconstructions have been obtained. 3-D reconstructions have been obtained. Low dose protocols were performed. One or more of the following dose reduction techniques were used; automated exposure control, adjustment of the mA and/or KV according to patient size, use of iterative reconstruction technique. Findings: Severe osteopenia Bones of the pelvis intact Right hip hemiarthroplasty with satisfactory alignment Advanced left hip osteoarthritis Avascular necrosis involving the left femoral head occupying more than 50% of the articulating surface Urinary bladder intact, atrophic uterus IMPRESSION: Advanced left hip osteoarthritis Significant avascular necrosis left femoral head
== END | disposition home or self-care (01) ==
LOC: CCTX 09:14
PROVIDERS: PCP Nurse Practitioner Family; Referring Provider Nurse Practitioner Family; Visit Provider Nurse Practitioner Family
DX: M16.12 Unilateral primary osteoarthritis, left hip (principal); M87.852 Other osteonecrosis, left femur
CPT/HCPCS: 73700

== ENCOUNTER 2025-05-26 08:17 | Outpatient (AMB) | payer MEDICARE, MEDICAID, SELFPAY ==
--- NOTE | 2025-05-26 08:52 | ORTHONT_ITS ---
Vital signs 05/26/25 08:53 Height 1.6 m Height Method Measured Weight 74.559 kg Weight Measurement Method Standing Scale BMI 29.1 BP 147/74 H Blood Pressure Source Automatic Cuff Blood Pressure Location Left Upper Arm Position Sitting Respiration 18 Pulse 83 Pulse Source Monitor Temp 97.9 F Temp Source Temporal Artery Scan Pulse Oximetry (%) 98 Oxygen Delivery Method Room Air Med/Allergies Allergies & Medications Allergies No Known Allergies Allergy (Verified 05/26/25 08:53) Medication Reconciliation ezetimibe 10 mg tablet (Zetia) 10 mg PO QDAY #0 tabs 11/20/13 [History Confirmed 05/26/25] aspirin 81 mg chewable tablet 81 mg PO QDAY ##0 11/14/15 [History Confirmed 05/26/25] Held on 03/10/25. Instructions: Resume on 03/11/25. nitroglycerin 0.4 mg sublingual tablet (Nitrostat) 0.4 mg SL Q5MIN PRN CHEST PAIN #5 tabs 06/27/17 [Rx Confirmed 05/26/25] hydrocodone 7.5 mg-acetaminophen 325 mg tablet (Hannah) 1 tab PO Q6H PRN Pain 11/23/18 [History Confirmed 05/26/25] amlodipine 5 mg tablet 5 mg PO DAILY 01/24/25 [History Confirmed 05/26/25] losartan 100 mg tablet 100 mg PO DAILY 01/24/25 [History Confirmed 05/26/25] atorvastatin 40 mg tablet 40 mg PO QDAY 03/09/25 [History Confirmed 05/26/25] carvedilol 6.25 mg tablet 6.25 mg PO BID 03/09/25 [History Confirmed 05/26/25] levalbuterol tartrate 45 mcg/actuation aerosol inhaler 2 inh inhalation Q6H PRN shortness of breath or wheezing 03/09/25 [History Confirmed 05/26/25] ticagrelor 90 mg tablet (Brilinta) 90 mg PO BID 03/09/25 [History Confirmed 05/26/25] Held on 03/10/25. Instructions: Resume on 03/11/25. Exam Exam Patient is in no acute distress and is cooperative with the examination today. Breathing is nonlabored. In no respiratory distress. Patient has kyphosis of her spine The gait of the patient is nonantalgic Bilateral extremities were evaluated and demonstrates sensation intact to light touch. Palpable pedal pulses are present. No significant edema is present. Bilateral knees were examined and the patient has full strength and range of motion.. The right hip was examined. Patient was able to flex to 90 degrees, adduct to 30 degrees, abduct to 40 degrees, internally rotate to 20 degrees, and externally rotate to 20 degrees. Patient has a negative logroll. Stinchfield is negative. The patient is nontender diffusely to touch. The left hip was examined. Patient was able to flex to 90 degrees, adduct to 30 degrees, abduct to 40 degrees, internally rotate to 0 degrees, and externally rotate to 20 degrees. Patient has a positive logroll X-rays of the left hip demonstrates avascular porosis and loss of a sphericity. The sclerosis of the femoral head and complete joint space narrowing Assessment and Plan Problem List (1) Avascular necrosis of bone of left hip: Status: Acute Plan: ASSESSMENT AND PLAN 1. Left hip pain: Left hip pain is attributed to avascular necrosis, necessitating a total hip replacement. Given the recent myocardial infarction in 01/2025, there is a high risk of complications, including dislocation and fracture due to brittle bones. A waiting period of 6 months to a year post-heart attack is typically observed before proceeding with surgery. Medical and cardiac clearance will be sought from Dr. Juarez prior to any surgical intervention. The patient will be provided with a clearance form to get everything worked up. Discussed the importance of being able to lay on her back post-surgery, and the potential need for a hospital bed to manage post-operative pain and positioning. The patient will likely need an inpatient stay if she gets surgery. I do not think surgery is a great idea as she recently had a heart attack and seemed very poorly optimized. We would need to do quite a bit of coordination in order to do a hip replacement. She is at high risk of complications including fracture as well as infection 2. Chronic obstructive pulmonary disease (COPD): COPD is noted, although she quit smoking 4 years ago. No specific treatment plan was discussed during the visit. 3. Myocardial infarction: A heart attack occurred in 01/2025, and she has had 7 stents placed in the past. Currently on aspirin and blood thinners. The necessity of staying on these medications was emphasized, and coordination with Dr. Juarez is required for any surgical planning. Advanced Care Planning Discussion Advance care planning discussed with:: patient Office Procedures GNS Level of Care Nursing/Assessment Patient Status: Initial/New Patient Nursing Assessment/Reassesment: Medication Reconciliation, Update PMH in EMR and Vital Signs Coordination of Care: Complex Care and Chronic Disease 1-5, Education Complex Pt/Fam, Consent,records obtained, informed consent, Lab and Imaging orders, Results/Orders obtained and Staff clarify orders New Patient Charge New Patient Point Assignment: 1109 New Patient Point Charge: HAND ROUTER OPERATOR Level 3 (7504-5808) MA Intake Visit Data Collection New Patient or Established: New Patient (never been to [facility]) Reason for Visit:: LEFT HIP PAIN Seen by Clinical Staff ONLY (RN/MA): No Power Plant Manager Required: No PCP or OBGYN visit in last 3 months: Yes Hx Now: No Do You Feel Safe at Home: Yes Authorities Contacted: N/A Questionairres Past Medical History Past Medical History Have you ever been diagnosed with any of the following: Neurological Problems Seizures: No Multiple Sclerosis: Yes Peripheral Neuropathy: Yes Cardiology Problems Myocardial Infarction: Yes (x6) Atrial Fibrillation: Yes Coronary Artery Disease: Yes Hypercholesterolemia: Yes Congestive Heart Failure: No Hypertension: Yes Respiratory Problems Chronic Obstructive Pulmonary Disease (COPD): No Asthma: Yes Bronchitis: Yes Pneumonia: Yes Stomache/Intestinal Problems Gastroesophageal Reflux Disease: Yes Genital/Urinary Problems Renal Disease: No Musculoskeletal Problems Arthritis: Yes Head,Eye,Nose,Throat Problems Cataracts: Yes Deafness: Yes (right ear deaf, left earing aid) Endocrine Problems Diabetes Mellitus Type 1: No Diabetes Mellitus Type 2: No Blood Problems Sickle Cell Disease: No Psychologic Problems Recreational Drug Use: Yes (marijuana use) Anxiety: Yes (years ago) Other Problems Blood Transfusions: No Anesthesia Reactions: No Subjective Visit Visit for: new patient and hip Immunization / Flu Flu Vaccine in the Last 12 Months: Yes Flu Vaccine Exclusion Criteria: Already Received History of Present Illness Chief complaint: LEFT HIP PAIN HISTORY OF PRESENT ILLNESS Murtaza Pineda, have obtained verbal consent from the patient, to be recorded during this encounter which may include, but not limited to, medical history, examination, treatment plans, and relevant health information.? Patient was informed that recording will be read and reviewed by myself before inclusion in the medical chart. The patient presents for evaluation of left hip pain. Patient is a 75-year-old female with a left hip pain and avascular necrosis. she has been experiencing discomfort in her left hip, specifically in the groin area, since a fall from bed in 02/2019. She reports difficulty in reaching her left foot and tying her shoes. She has been informed that she requires a hospital bed due to her inability to lie on her back, which causes significant pain during sleep. She has a history of severe arthritis and avascular necrosis. She has temporarily delegated her emergency communications officer to her granddaughter due to her condition. She also reports persistent swelling in her foot. She has been attempting to obtain a new walker. She has a history of right hip fracture in 2017. She has a history of COPD but quit smoking 4 years ago. She had a heart attack in 01/2025 and has had 7 stents placed in the past. She is currently on aspirin and blood thinners. Personal History Red flag PMH: none BMI Counceling provided: No Pain Pain level (0-10): 9 Pain location: groin Pain quality: sharp Pain timing: night and increases with activity Associated signs & symptoms: none Ambulatory data Ambulatory device: walker Treatments Number of previous injections: 0 Improvement with previous injections: No Number of Physical Therapy sessions: 0 Improvement with PT: No Improvement with NSAIDS: no Review of Systems Review of Systems: All systems negative unless otherwise noted in HPI. It is notable for multiple sclerosis, heart issues including STEMI, and COPD
[2025-05-26 08:53] VITALS: BP 147/74; PULSE 83; RESP 18; TEMP 36.6; O2SAT 98; BMI 29.1
== END 2025-05-26 09:06 | disposition home or self-care (01) ==
LOC: HODSRG 08:17
PROVIDERS: PCP Nurse Practitioner Family; Referring Provider Nurse Practitioner Family; Supervising Provider Orthopaedic Surgery Adult Reconstructive Orthopaedic Surgery; Visit Provider Orthopaedic Surgery Adult Reconstructive Orthopaedic Surgery
DX: M25.552 Pain in left hip (principal); M87.852 Other osteonecrosis, left femur; J44.9 Chronic obstructive pulmonary disease, unspecified; I21.9 Acute myocardial infarction, unspecified
CPT/HCPCS: 99203; G0463